=== PATIENT | female | born 1940 | race African-American/Black ===

== ENCOUNTER → 2016-07-31 | Outpatient (CLI) | payer MEDICARE ==
[2016-06-19 11:00] VITALS: BP 135/73
[~2016-07-31] MED LIST: ACET325T9 PO; ALPH300C PO; ALPR0.254 PO; ALPR0.5T6 PO; CALC-98 PO; CALC500T27 PO; CETI10CA PO; CETI10TA22 PO; DICL100G7 TP; FEXO180T81 PO; FLUT16SP2 NS; FURO40TA4 PO; HYDR12.58 PO; IBUP-1060 PO; LACT1CAP29 PO; LEVO500T38 PO; METR500T PO; MULT-245 PO; OMEP20CA9 PO; OMEP40CA5 PO; POLY17PO5 PO; POTA20TA4 PO; PROAIR HFA8.5 GM INH; SUCR1TAB29 PO
[2016-07-31 08:32] LABS: CREATININE 0.7 mg/dL (0.6-1.0); GFR 98.4
== END | disposition home or self-care (01) ==
LOC: CT 07:58
PROVIDERS: ATTEND Physician Assistant
DX: K31.84 Gastroparesis (principal); R10.9 Unspecified abdominal pain; R11.0 Nausea
CPT/HCPCS: 82565; 84443

== ENCOUNTER → 2016-08-01 | Outpatient (CLI) | payer MEDICARE ==
[2016-06-19 11:00] VITALS: BP 135/73
[~2016-08-01] MED LIST changes: +CONTRAST GIVEN MC PRN; +IOHEXOL 350 MG/ML 100ML VIAL. IV ONE
--- NOTE | 2016-08-01 10:53 | RAD ---
CTA of the abdomen and pelvis with contrast, 08/01/2016: History: Nausea and vomiting, abdominal pain, gastroparesis Multidetector CT imaging was performed following an IV bolus injection of iodinated contrast material. Multiplanar reconstructions were produced including 3-D volume rendered reconstructions. There are mild scattered atherosclerotic plaques in the abdominal aorta. There is mild narrowing of the origin of the celiac artery. Approximately 1.4 cm distal to its origin there is high-grade focal stenosis of the celiac artery with moderate poststenotic dilatation. The lumen narrows down to a width of approximately 1.5 mm. There is abrupt anterior angulation of the celiac artery just distal to this stenosis. Compression by the median arcuate ligament can produce this pattern. The superior mesenteric and bilateral renal arterial origins are widely patent. A widely patent inferior mesenteric artery is present. There is mild calcific plaquing in the iliac arteries and common femoral arteries without evidence of high-grade stenosis. Incidental CT findings include the presence of a small left renal cyst. There is colonic diverticulosis. There are moderate scattered degenerative change in the spine, particularly at the L3-4 level where there is a minimal spondylolisthesis. 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 Note: Stenosis calculations for CT, MRA and conventional angiography are based upon determination of the distal ICA diameter in accordance with the NASCET methodology. Stenosis calculations for Doppler studies are derived from validated velocity criteria which are known to correlate with NASCET methodology of determining stenosis. PQRS Compliance Statement: One or more of the following individualized dose reduction techniques were utilized for this examination: 1. Automated exposure control 2. Adjustment of the mA and/or kV according to patient size 3. Use of iterative reconstruction technique
== END | disposition home or self-care (01) ==
LOC: CT 07:20
PROVIDERS: ATTEND Physician Assistant
DX: R10.9 Unspecified abdominal pain (principal); R11.0 Nausea; K31.84 Gastroparesis
CPT/HCPCS: 74174; Q9967

== ENCOUNTER 2016-08-10 17:10 | Emergency (ER) | payer MEDICARE ==
[~2016-08-10] VITALS: Ht 154.9 cm; Wt 63.5 kg
[~2016-08-10 17:10] MED LIST changes: -CONTRAST GIVEN MC PRN; -IOHEXOL 350 MG/ML 100ML VIAL. IV ONE
--- NOTE | 2016-08-10 17:48 | ED.ADGEN ---
Past Medical History Past Medical History: Constipation, GERD Additional Past Medical Histor: chronic back pain, delayed gastric emptying Past Surgical History: Cholecystectomy, Hip Replacement, Hysterectomy Additional Past Surgical Histo: back surgery, hernia, R HIP Alcohol Use: None Drug Use: None Adult General Chief Complaint Chief Complaint: POST-OP PROBLEM HPI HPI Patient is a 75 year old female presents emergency department complaining of unilateral right leg pain and swelling. She is 6 days postop from a right total hip arthroplasty. Denies any fevers or chills. She is currently on Lovenox for DVT prophylaxis. She has been ambulating and doing well physical therapy. It was her home health nurse suggested that she come the emergency department today. Review of Systems Review of Systems Constitutional: Denies fever or chills. [] Eyes: Denies change in visual acuity. [] HENT: Denies nasal congestion or sore throat. [] Respiratory: Denies cough or shortness of breath. [] Cardiovascular: Denies chest pain or edema. [] GI: Denies abdominal pain, nausea, vomiting, bloody stools or diarrhea. [] : Denies dysuria. [] Musculoskeletal: Denies back pain or joint pain. [] Integument: Denies rash. [] Neurologic: Denies headache, focal weakness or sensory changes. [] Endocrine: Denies polyuria or polydipsia. [] Lymphatic: Denies swollen glands. [] Psychiatric: Denies depression or anxiety. [] Allergies Allergies Allergies Coded Allergies Type Severity Reaction Last Updated Verified lisinopril Allergy Severe SYMPTOMS OF A MINI STROKE 06/14/16 Yes acetaminophen Allergy Intermediate Nausea, LOW BLOOD PRESSURE, 06/14/16 Yes alprazolam Allergy Intermediate Unknown 06/14/16 Yes amlodipine Allergy Intermediate Nausea, SWELLING AND HEADACHES 06/14/16 Yes amoxicillin Allergy Intermediate Itching 06/14/16 Yes clavulanic acid Allergy Intermediate Itching 06/14/16 Yes clonidine Allergy Intermediate Rash 06/14/16 Yes cyclobenzaprine Allergy Intermediate Palpitations 06/14/16 Yes iodine Allergy Intermediate Itching 12/16/13 Yes iodine Allergy Intermediate Rash, ITCHING 06/14/16 Yes lactose Allergy Intermediate Swelling, BLOATING 06/14/16 Yes losartan Allergy Intermediate Swelling, MIGRAINE, SINUS INFECTION, 06/14/16 Yes olanzapine Allergy Intermediate Rash 06/14/16 Yes shellfish derived Allergy Intermediate Swelling 06/14/16 Yes tramadol Allergy Intermediate Swelling, ITCHING 06/14/16 Yes triamterene Allergy Intermediate Unknown 06/14/16 Yes valsartan Allergy Intermediate Swelling, MIGRAINE, SINUS INFECTION, 06/14/16 Yes simvastatin Allergy Mild MUSCLE PROBLEM 12/16/13 Yes hydrocodone Adverse Reaction Intermediate NAUSEA, LOW BLOOD PRESSURE 06/14/16 Yes methylprednisolone Adverse Reaction Intermediate THRUSH 06/14/16 Yes montelukast Adverse Reaction Intermediate COULD NOT SLEEP 06/14/16 Yes potassium Adverse Reaction Intermediate Nausea 06/14/16 Yes promethazine Adverse Reaction Intermediate Nausea 06/14/16 Yes sertraline Adverse Reaction Intermediate TREMORS, HYPOTENSION 06/14/16 Yes Physical Exam Physical Exam Constitutional: Well developed, well nourished, no acute distress, non-toxic appearance. [] HENT: Normocephalic, atraumatic, bilateral external ears normal, oropharynx moist, no oral exudates, nose normal. [] Eyes: PERRLA, EOMI, conjunctiva normal, no discharge. [] Neck: Normal range of motion, no tenderness, supple, no stridor. [] Cardiovascular:Heart rate regular rhythm, no murmur [] Lungs & Thorax: Bilateral breath sounds clear to auscultation [] Abdomen: Bowel sounds normal, soft, no tenderness, no masses, no pulsatile masses. [] Skin: Warm, dry, no erythema, no rash. [] Extremities: Surgical site looks well with no signs of infection, right lower extremity is noticeably edematous comparison to the left, no cyanosis, no clubbing, ROM intact. [] Neurologic: Alert and oriented X 3, normal motor function, normal sensory function, no focal deficits noted. [] Psychologic: Affect normal, judgement normal, mood normal. [] Current Patient Data Vital Signs Vital Signs Date Time Temp Pulse Resp B/P Pulse Ox O2 Delivery O2 Flow Rate FiO2 08/10/16 19:21 89 20 202/76 Room Air 08/10/16 17:51 99 08/10/16 17:25 98.9 98.9 EKG EKG [] Radiology/Procedures Radiology/Procedures PROCEDURE Ultrasound venous system right leg 3 05/2017. HISTORY Pain and swelling. One week post hip replacement surgery. TECHNIQUE Color Doppler and spectral waveform analysis was performed along with real-time grayscale technique. COMPARISON FINDINGS The deep venous system of the right lower extremity shows normal compressibility and normal Doppler flow and augmentation of flow extending from the common femoral segment to the popliteal segment. The visualized calf veins also appear normal. Incidental note is made of some subcutaneous edema in the leg. IMPRESSION No evidence of DVT. Electronically signed by: Victor Manuel Nicole (Aug 10, 2016 19:28:54) DICTATED and SIGNED BY: VICTOR MANUEL NICOLE Jr, MD DATE: 08/10/161927 CC: SHAHAB FORD MD; SHAWN ALMONTE MD ~[] Course & Med Decision Making Course & Med Decision Making Pertinent Labs and Imaging studies reviewed. (See chart for details) Reassuring workup. Will follow up with her ortho tomorrow. Return precautions given. post-operative edema [] Dragon Disclaimer Dragon Disclaimer This electronic medical record was generated, in whole or in part, using a voice recognition dictation system. SHAHAB FORD MD Aug 10, 2016 17:47
[2016-08-10 19:21] VITALS: BP 202/76
--- NOTE | 2016-08-10 19:30 | RAD ---
PROCEDURE Ultrasound venous system right leg 3 05/2017. HISTORY Pain and swelling. One week post hip replacement surgery. TECHNIQUE Color Doppler and spectral waveform analysis was performed along with real-time grayscale technique. COMPARISON FINDINGS The deep venous system of the right lower extremity shows normal compressibility and normal Doppler flow and augmentation of flow extending from the common femoral segment to the popliteal segment. The visualized calf veins also appear normal. Incidental note is made of some subcutaneous edema in the leg. IMPRESSION No evidence of DVT. Electronically signed by: Victor Manuel Vasquez (Aug 10, 2016 19:28:54)
== END 2016-08-10 19:53 | disposition home or self-care (01) ==
LOC: ER 17:10
DX: T81.89XA Other complications of procedures, not elsewhere classified, initial encounter (principal); R60.9 Edema, unspecified; G89.29 Other chronic pain; Z88.0 Allergy status to penicillin; Z88.1 Allergy status to other antibiotic agents; Z88.5 Allergy status to narcotic agent; Z88.6 Allergy status to analgesic agent; Z88.8 Allergy status to other drugs, medicaments and biological substances; Z91.041 Radiographic dye allergy status; Z91.011 Allergy to milk products; Z91.013 Allergy to seafood
CPT/HCPCS: 93971; 99284-25

== ENCOUNTER 2016-09-30 15:25 | Emergency (ER) | payer MEDICARE ==
[~2016-09-30] VITALS: Ht 154.9 cm; Wt 59.0 kg
[~2016-09-30 15:25] MED LIST changes: +POLY17PO29 PO; -POLY17PO5 PO
[2016-09-30] MEDS ORDERED: IV NORMAL SALINE 500ML BAG 500 ML IV ONE (15:45)
[2016-09-30] MEDS ORDERED: ONDANSETRON PF 4 MG/2 ML VIAL. IV ONE (15:45)
--- NOTE | 2016-09-30 15:49 | EKG ---
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
--- NOTE | 2016-09-30 15:55 | PHYS DOC ---
Past Medical History Past Medical History: Constipation, GERD Additional Past Medical Histor: chronic back pain, delayed gastric emptying, celiac artery stenosis Past Surgical History: Cholecystectomy, Hip Replacement, Hysterectomy Additional Past Surgical Histo: back surgery, hernia, R HIP Alcohol Use: None Drug Use: None Adult General Chief Complaint Chief Complaint: RAPID HEART RATE HPI HPI Patient is a 75 year old female with celiac artery stenosis who presents postop day 1 from attempted arterial stenting by vascular surgeon at [facility] for tachycardia and palpitations at home. She had procedure yesterday that was unsuccessful. During the case she had high and low blood pressures, so she was placed in the ICU overnight and then moved to normal room today. She was discharged this morning. She was given dose of hydralazine prior to departure for high blood pressure. She has slight nausea which she says is chronic. She otherwise denies emesis, fever or chills, abdominal pain, bloody or dark stools, chest pain, dyspnea or chills. She has no prior history of abnormal heart rate or arrhythmia. Review of Systems Review of Systems Constitutional: Denies fever or chills [] Eyes: Denies change in visual acuity, redness, or eye pain [] HENT: Denies nasal congestion or sore throat [] Respiratory: Denies cough or shortness of breath [] Cardiovascular: No additional information not addressed in HPI [] GI: Denies abdominal pain, vomiting, bloody stools or diarrhea [] : Denies dysuria or hematuria [] Musculoskeletal: Denies back pain or joint pain [] Integument: Denies rash or skin lesions [] Neurologic: Denies headache, focal weakness or sensory changes [] Endocrine: Denies polyuria or polydipsia [] Current Medications Current Medications Current Medications Medications (Trade) Dose Ordered Sig/[facility] Start Time Stop Time Status Last Admin Dose Admin Acetaminophen (Tylenol) 500 mg 1X ONCE 09/30/16 17:45 09/30/16 17:46 DC 09/30/16 18:15 500 MG Diphenhydramine HCl (Benadryl) 25 mg 1X ONCE 09/30/16 19:00 09/30/16 19:01 DC 09/30/16 18:51 25 MG Famotidine (Pepcid) 20 mg 1X ONCE 09/30/16 19:00 09/30/16 19:01 DC 09/30/16 18:51 20 MG Iohexol (Omnipaque 350 Mg/ml) 90 ml 1X ONCE 09/30/16 19:00 09/30/16 19:01 DC 09/30/16 19:17 90 ML Methylprednisolone Sodium Succinate (Solu-Medrol 125mg Vial) 125 mg 1X ONCE 09/30/16 19:00 09/30/16 19:01 DC 09/30/16 18:51 125 MG Ondansetron HCl 4 mg 4 mg 1X ONCE 09/30/16 15:45 09/30/16 15:48 DC 09/30/16 16:34 4 MG Sodium Chloride (Iv Sodium Chloride 0.9% 500ml Bag) 500 ml @ 500 mls/hr 1X ONCE 09/30/16 15:45 09/30/16 16:44 DC 09/30/16 16:34 500 MLS/HR Allergies Allergies Allergies Coded Allergies Type Severity Reaction Last Updated Verified lisinopril Allergy Severe SYMPTOMS OF A MINI STROKE 06/14/16 Yes alprazolam Allergy Intermediate Unknown 06/14/16 Yes amlodipine Allergy Intermediate Nausea, SWELLING AND HEADACHES 06/14/16 Yes amoxicillin Allergy Intermediate Itching 06/14/16 Yes clavulanic acid Allergy Intermediate Itching 06/14/16 Yes clonidine Allergy Intermediate Rash 06/14/16 Yes cyclobenzaprine Allergy Intermediate Palpitations 06/14/16 Yes iodine Allergy Intermediate Itching 12/16/13 Yes iodine Allergy Intermediate Rash, ITCHING 06/14/16 Yes lactose Allergy Intermediate Swelling, BLOATING 06/14/16 Yes losartan Allergy Intermediate Swelling, MIGRAINE, SINUS INFECTION, 06/14/16 Yes olanzapine Allergy Intermediate Rash 06/14/16 Yes shellfish derived Allergy Intermediate Swelling 06/14/16 Yes tramadol Allergy Intermediate Swelling, ITCHING 06/14/16 Yes triamterene Allergy Intermediate Unknown 06/14/16 Yes valsartan Allergy Intermediate Swelling, MIGRAINE, SINUS INFECTION, 06/14/16 Yes simvastatin Allergy Mild MUSCLE PROBLEM 12/16/13 Yes hydrocodone Adverse Reaction Intermediate NAUSEA, LOW BLOOD PRESSURE 06/14/16 Yes montelukast Adverse Reaction Intermediate COULD NOT SLEEP 06/14/16 Yes potassium Adverse Reaction Intermediate Nausea 06/14/16 Yes promethazine Adverse Reaction Intermediate Nausea 06/14/16 Yes sertraline Adverse Reaction Intermediate TREMORS, HYPOTENSION 06/14/16 Yes Physical Exam Physical Exam Constitutional: Well developed, well nourished, no acute distress, non-toxic appearance. [] HENT: Normocephalic, atraumatic, bilateral external ears normal, oropharynx moist, nose normal. [] Eyes: PERRLA, EOMI. [] Neck: Normal range of motion, supple. [] Cardiovascular: Regular tachycardia [] Lungs & Thorax: Bilateral breath sounds clear to auscultation [] Abdomen: Bowel sounds normal, soft, no tenderness. [] Skin: Warm, dry, no erythema, no rash. [] Back: Normal range of motion. [] Extremities: No tenderness, ROM intact, no edema. [] Neurologic: Alert and oriented X 3, normal motor function, normal sensory function, no focal deficits noted. [] Psychologic: Affect normal, judgement normal, mood normal. [] Current Patient Data Vital Signs Vital Signs Date Time Temp Pulse Resp B/P Pulse Ox O2 Delivery O2 Flow Rate FiO2 09/30/16 18:00 106 18 159/74 100 Room Air 09/30/16 15:30 98.2 98.2 Lab Values Laboratory Tests Test 09/30/16 16:14 White Blood Count 10.0x10^3/uL (4.0-11.0) Red Blood Count 3.79x10^6/uL (3.50-5.40) Hemoglobin 12.8g/dL (12.0-15.5) Hematocrit 37.0% (36.0-47.0) Mean Corpuscular Volume 98fL (79-100) Mean Corpuscular Hemoglobin 34pg (25-35) Mean Corpuscular Hemoglobin Concent 35g/dL (31-37) Red Cell Distribution Width 13.2% (11.5-14.5) Platelet Count 265x10^3/uL (140-400) Neutrophils (%) (Auto) 77% (31-73) H Lymphocytes (%) (Auto) 14% (24-48) L Monocytes (%) (Auto) 8% (0-9) Eosinophils (%) (Auto) 1% (0-3) Basophils (%) (Auto) 1% (0-3) Neutrophils # (Auto) 7.8x10^3uL (1.8-7.7) H Lymphocytes # (Auto) 1.4x10^3/uL (1.0-4.8) Monocytes # (Auto) 0.8x10^3/uL (0.0-1.1) Eosinophils # (Auto) 0.1x10^3/uL (0.0-0.7) Basophils # (Auto) 0.1x10^3/uL (0.0-0.2) Sodium Level 134mmol/L (136-145) L Potassium Level 3.6mmol/L (3.5-5.1) Chloride Level 99mmol/L (98-107) Carbon Dioxide Level 28mmol/L (21-32) Anion Gap 7 (6-14) Blood Urea Nitrogen 11mg/dL (7-20) Creatinine 0.6mg/dL (0.6-1.0) Estimated GFR (Cockcroft-Gault) 117.6 Glucose Level 99mg/dL (70-99) Lactic Acid Level 1.5mmol/L (0.4-2.0) Calcium Level 9.6mg/dL (8.5-10.1) Total Bilirubin 0.3mg/dL (0.2-1.0) Direct Bilirubin 0.1mg/dL (0.0-0.2) Aspartate Amino Transferase (AST) 17U/L (15-37) Alanine Aminotransferase (ALT) 25U/L (14-59) Alkaline Phosphatase 78U/L (46-116) Total Protein 7.4g/dL (6.4-8.2) Albumin 3.9g/dL (3.4-5.0) Lipase 74U/L (73-393) Laboratory Tests 09/30/16 16:14 Laboratory Tests 09/30/16 16:14 EKG EKG EKG as interpreted by me as sinus tachycardia, rate 122, no ST-T changes, normal intervals, no ectopy Radiology/Procedures Radiology/Procedures CT angiogram abdomen and pelvis with IV contrast IMPRESSION 1. 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 2. There is colonic diverticulosis. 3. Small hypodense foci of the kidneys are otherwise difficult to accurately characterize, statistically most likely cysts. Electronically signed by: Billy Fung MD (September 30, 2016 19:51:42) Course & Med Decision Making Course & Med Decision Making Pertinent Labs and Imaging studies reviewed. (See chart for details) Workup is unremarkable. Her heart rate has improved since being observed here. I suspect she had reflex tachycardia associated with hydralazine. She would like to go home at this time. Return precautions given. She understands and agrees with plan. Dragon Disclaimer Dragon Disclaimer This electronic medical record was generated, in whole or in part, using a voice recognition dictation system. Departure Departure Impression: Primary Impression: Tachycardia Disposition: 01 HOME, SELF-CARE Condition: STABLE Referrals: SHAWN ALMONTE MD (PCP) Patient Instructions: Palpitations, [id number] Additional Instructions: Follow-up with your primary care doctor. Return for any concerns. Raquel RAMIREZ MD September 30, 2016 15:55
[2016-09-30 16:23] LABS: BASO # 0.1 x10^3/uL (0.0-0.2); BASO % 1 % (0-3); EOS % 1 % (0-3); HEMOGLOBIN 12.8 g/dL (12.0-15.5); LYMPH # 1.4 x10^3/uL (1.0-4.8); LYMPH % 14 % (24-48); MEAN CORPUSCULAR HEMOGLOBIN 34 pg (25-35); MEAN CORPUSCULAR HGB CONC 35 g/dL (31-37); MEAN CORPUSCULAR VOLUME 98 fL (79-100); MONO % 8 % (0-9); NEUT % 77 % (31-73); PLATELET COUNT 265 x10^3/uL (140-400); RED BLOOD COUNT 3.79 x10^6/uL (3.50-5.40); RED CELL DISTRIBUTION WIDTH 13.2 % (11.5-14.5)
[2016-09-30 16:43] LABS: CALCIUM 9.6 mg/dL (8.5-10.1); CREATININE 0.6 mg/dL (0.6-1.0); GFR 117.6; POTASSIUM 3.6 mmol/L (3.5-5.1)
[2016-09-30 16:49] LABS: ALBUMIN 3.9 g/dL (3.4-5.0); DIRECT BILIRUBIN 0.1 mg/dL (0.0-0.2); TOTAL BILIRUBIN 0.3 mg/dL (0.2-1.0); TOTAL PROTEIN 7.4 g/dL (6.4-8.2)
[2016-09-30] MEDS ORDERED: ACETAMINOPHEN 500 MG TABLET PO ONE (17:45)
[2016-09-30] MEDS ORDERED: IOHEXOL 350 MG/ML 100 ML VIAL. IV ONE (19:00)
[2016-09-30] MEDS ORDERED: FAMOTIDINE 20 MG/2 ML VIAL IVP ONE (19:00)
[2016-09-30] MEDS ORDERED: methylPREDNISolone SOD SUCC PF 125 MG/2 ML VIAL. IV ONE (19:00)
[2016-09-30] MEDS ORDERED: diphenhydrAMINE 50 MG/ML VIAL IVP ONE (19:00)
--- NOTE | 2016-09-30 19:06 | ACF ---
Admission Forms Criteria GENERAL ADMISSION CRITERIA (Place 'X' for any and all applicable criteria): Admission is indicated for ANY ONE of the following: [ ]I. Hemodynamic instability as indicated by ANY ONE of the following(1)(2) (3)(4)(5): [ ]a) Vital sign abnormality not readily corrected by appropriate treatment within 12 to 24 hours indicated by ANY ONE of the following: [ ]i) Hypotension [ ]ii) Symptomatic Tachycardia unresponsive to treatment (eg , analgesia, fluids, sedation as indicated) [ ]iii) Orthostatic vital sign changes unresponsive to treatment (eg, fluids) [ ]b) Vital sign abnormality that is severe indicated by ANY ONE of the following: [ ]i) Inadequate perfusion indicated by ANY ONE of the following: [ ]1) Lactic acidosis (greater than 2 mmol/L) [ ]2) New abnormal capillary refill (greater than 3 seconds) [ ]3) Other metabolic acidosis (arterial pH less than 7.35) not otherwise explained [ ]4) Reduced urine output [ ]5) Altered mental status [ ]6) Myocardial Ischemia [ ]v) Mean arterial pressure[A] less than 60 mm Hg [ ]vi) Mean arterial pressure[A] less than 70 mm Hg after 30 minutes of appropriate treatment (eg, fluid resuscitation) [ ]vii) IV inotropic or vasopressor medication required to maintain adequate blood pressure or perfusion [ ]viii) Sustained heart rate greater than 120 beats per minute in adult or child 6 years or older[B]] [ ]II. Hypertension requiring inpatient treatment as indicated by ANY ONE of the following(6)(7)(8): [ ]a) SBP greater than 220 mm Hg or DBP greater than 120 mm Hg despite treatment [ ]b) SBP greater than 140 mm Hg or DBP greater than 100 mm Hg with evidence of acute end organ damage as indicated by ANY ONE of the following: [ ]i) Encephalopathy [ ]ii) Acute renal failure as indicated by new onset of ANY ONE of the following(9)(10)(11)(12)(13): [ ]1) A 3-fold rise in serum creatinine from baseline [ ]2) Serum creatinine greater than 4 mg/dL ( 354 micromoles/L) with acute rise greater than 0.5 mg/dL (44.2 micromoles/L) [ ]3) Reduction of more than 75% in estimated glomerular filtration rate from baseline [ ]4) Estimated glomerular filtration rate less than 35 mL/min/1.73m2 (0.59 mL/sec/1.73m2) in child up to 18 years of age [ ]5) Cessation of urine output indicated by ALL of the following: [ ]A. Adequate volume status [ ]B. Inadequate urine output as indicated by ANY ONE of the following: [ ]a. Urine output less than 0.3 mL/kg/hr for 24 hours [ ]b. Anuria (urine output less than 0.1 mL/kg/hr) for 12 hours [ ]iii) Aortic dissection [ ]iv) Myocardial ischemia [ ]v) Left ventricular heart failure [ ]vi) Retinal hemorrhage [ ]vii) Other significant finding [ ]c) Hypertension in child requiring inpatient treatment as indicated by ALL of the following(14)(15)(16): [ ]i) Outpatient treatment not effective, not available, or not appropriate [ ]ii) SBP or DBP greater than 95th percentile for age [ ]iii) Evidence of acute end organ damage as indicated by ANY ONE of the following: [ ]1) Altered mental status [ ]2) Acute renal failure as indicated by new onset of ANY ONE of the following(9)(10)(11)(12)(13): [ ]A. A 3-fold rise in serum creatinine from baseline [ ]B. Serum creatinine greater than 4 mg/dL (354 micromoles/L) with acute rise greater than 0.5 mg/dL (44.2 micromoles/L) [ ]C. Reduction of more than 75% in estimated glomerular filtration rate from baseline [ ]D. Estimated glomerular filtration rate less than 35 mL/min/1.73m2 (0.59 mL/sec/1.73m2)in child up to 18 years of age [ ]E. Cessation of urine output indicated by ALL of the following: [ ]a. Adequate volume status [ ]b. Inadequate urine output as indicated by ANY ONE of the following: [ ]1) Urine output less than 0.3 mL/kg/hr for 24 hours [ ]2) Anuria (urine output less than 0.1 mL/kg/hr) for 12 hours [ ]3) Severe headache [ ]4) Visual disturbance [ ]5) Retinal hemorrhage [ ]6) Other significant finding [ ]III. Acute cardiac or peripheral ischemia as indicated by ANY ONE of the following: [ ]a) Acute coronary syndrome(17)(18) [ ]b) Acute peripheral ischemia (eg, pulseless, cool, mottled, or cyanotic extremity)(19) [ ]IV. Cardiac arrhythmias or findings of immediate concern indicated by ANY ONE of the following(20)(21): [ ]a) Heart rhythms that are inherently dangerous or unstable indicated by ANY ONE of the following(22)(23)(24): [ ]i) Resuscitated ventricular fibrillation or cardiac arrest [ ]ii) Ventricular escape rhythm [ ]iii) Sustained ventricular tachycardia (30 seconds or more of ventricular rhythm at greater than 100 beats per minute) [ ]iv) Nonsustained ventricular tachycardia and ANY ONE of the following: [ ]1) Suspected cardiac ischemia as cause or consequence of ventricular tachycardia [ ]2) In setting of acute myocarditis [ ]b) Unstable cardiac conduction defects indicated by ANY ONE of the following(24)(25)(26): [ ]i) Type II second-degree atrioventricular block [ ]ii) Third-degree atrioventricular block [ ]iii) New-onset left bundle branch block with suspected myocardial ischemia [ ]c) Any heart rhythm and ANY ONE of the following(22)(23)(27)(28)( 29): [ ] i) Continuous long-term ECG monitoring needed (eg, initiation of drug requiring monitoring for more than 24 hours) [ ] ii) Patient has automatic implanted cardioverter defibrillator that is repeatedly firing, malfunctioning, or in need of immediate adjustment of settings beyond the scope of ambulatory or observation care. [ ]d) Heart rhythms of concern due to ANY ONE of the following: [ ]i) Hypotension [ ]ii) Respiratory distress [ ]iii) Association with other significant symptoms (eg, bradycardia with syncope or ongoing dizziness, supraventricular tachycardia with chest pain) (27)(28) (30) [ ] V. Severe heart failure as indicated by ANY ONE of the following ( 31)(32): [ ]a) Respiratory distress [ ]b) Hypotension [ ]c) Anasarca (refractory to outpatient therapy) [ ]d) Cardiac arrhythmias of immediate concern [ ]e) Myocardial ischemia [ ]. Respiratory abnormalities, including ANY ONE of the following(33)(34) (35)(36): [ ]a) Respiratory rate greater than 30 breaths per minute unresponsive to treatment [A] [ ]b) New saturation of arterial oxygen less than 90% [ ]c) New partial pressure of carbon dioxide greater than 44 mm Hg ( 5.9 kPa) [ ]d) Supplemental oxygen or respiratory treatments needed that are new or not performable at other levels of care [ ]e) New-onset cyanosis [ ]f) Inability to protect airway [ ]g) Chronic lung disease with severe deterioration (not responsive to emergency and observation care treatment as appropriate) as indicated by ANY ONE of the following(34)(36 ): [ ]i) SaO2 5% below baseline in patient with chronic hypoxemia [ ]ii) New requirement for supplemental oxygen to keep SaO2 at baseline or acceptable level [ ]iii) Required supplemental oxygen performable only in acute inpatient setting [ ]iv) Severe airflow or ventilation abnormalities [ ]v) Previously mobile patient unable to walk between rooms [ ]vi Inability to eat or sleep due to dyspnea [ ]vii) Rapid rate of exacerbation onset [ ]viii) Altered mental status ]VII. Severe airflow or ventilation abnormalities (not responsive to emergency and observation care treatment as appropriate) as indicated by ANY ONE of the following(33)(34)(35)(37): [ ]a) PCO2 greater than 42 mm Hg (5.6 kPa) and pH less than 7.35 (new ) [ ]b) Documented PCO2 increased more than 5 mm Hg (0.7 kPa) from disease baseline [ ]c) Airflow measurements [B] less than 60% of previous best or predicted (eg, peak expiratory flow rate less than 300 L/minute) despite intensive emergent treatment [C] [ ]d) Required respiratory treatments that are performable only in acute inpatient setting [ ]VIII. Impending or actual respiratory arrest ( Also use Respiratory Failure GRG for severe respiratory disease and long-term mechanical ventilation patients) [ ]IX. Neurologic abnormalities, including ANY ONE of the following: [ ]a) New findings that suggest ANY ONE of the following: [ ]i) LOGISTICS SUPPORT infection(38) [ ]ii) Cerebral bleeding, ischemia, or vasospasm(39)(40) [ ]iii) Increased intracranial pressure, hydrocephalus, or cerebral edema(41)(42)(43) [ ]iv) Spinal cord injury(44) [ ]b) Uncontrolled seizures(45) [ ]c) New-onset coma (eg, Veronica coma scale score less than 9) or unexplained abnormal mental status (eg, Veronica coma scale score less than 14) [D](41)(46)(47) [ ]X. New-onset severe neurologic findings requiring inpatient care; examples include(42)(48)(49): [ ]a) Papilledema [ ]b) Cerebral edema [ ]c) Mass effect on CT scan [ ]XI. Suspected acute intra-abdominal process with peritoneal signs, abdominal mass, or similar findings (50)(51)(52) [ ]XII. Severe physiologic disorder remaining after emergency or observation level care (as appropriate) as indicated by ANY ONE of the following (53): [ ]a) Significant dehydration [ ]b) Diabetic ketoacidosis [ ]c) Hyperglycemic hyperosmolar state (eg, osmolality greater than 320 mOsm/kg (mmol/kg) [ ]d) Hypoglycemia [ ]e) Other (new) acid-base disorder with pH less than 7.35 or greater than 7.5(54) [ ]f) Thyroid storm (55) [ ]g) Myxedema coma (55) [ ]XIII. Abdominal abnormalities with ANY ONE of the following(56)(57): [ ]a) Absent bowel sounds with complete ileus [ ]b) Signs of intestinal obstruction or peritonitis [E] [ ]c) Nausea and vomiting that cannot be controlled with outpatient or observation care [ ]XIV. Acute renal failure as indicated by new onset of ANY ONE of the following(9)(10)(11)(12)(13): [ ]a) A 3-fold rise in serum creatinine from baseline [ ]b) Serum creatinine greater than 4 mg/dL (354 micromoles/L) with acute rise greater than 0.5 mg/dL (44.2 micromoles/L) [ ]c) Reduction of more than 75% in estimated glomerular filtration rate from baseline [ ]d) Estimated glomerular filtration rate less than 35 mL/min/ 1.73m2 (0.59 mL/sec/1.73m2) in child up to 18 years of age [ ]e) Cessation of urine output indicated by ALL of the following: [ ]i) Adequate volume status [ ]ii) Inadequate urine output as indicated by ANY ONE of the following: [ ]1) Urine output less than 0.3 mL/kg/hr for 24 hours [ ]2) Anuria (urine output less than 0.1 mL/kg/hr) for 12 hours [ ]XV. Significant uremic complications as indicated by ANY ONE of the following(58)(59)(60): [ ]a) Outpatient therapy is ineffective or not feasible for ANY ONE of the following: [ ]i) Severe heart failure [ ]ii) Severehypertension [ ]iii) Pleural effusion [ ]iv) Pericarditis or pericardial effusion [ ]b) Cardiac arrhythmias of immediate concern [ ]c) Intractable nausea or vomiting [ ]d) Recurrent seizures [ ]e) Encephalopathy [ ]f) Bleeding abnormalities (eg, platelet dysfunction) with active (eg, gastrointestinal) bleeding [ ]g) Dialysis indicated before long-term access or ambulatory arrangements can be made [ ]h) Significant metabolic or electrolyte abnormalities (eg, severe acidosis or hyperkalemia) [ ]XVI. High fever or other high-risk infection situation as indicated by ANY ONE of the following(61)(62)(63)(64): [ ]a) Outpatient and observation care antimicrobial treatment unavailable, not effective, or not appropriate [ ]b) Documented bacteremia [ ]c) Temperature greater than 40.5 degrees C (104.9 degrees F) ( oral) [ ]d) Temperature greater than 39.5 degrees C (103.1 degrees F) ( oral) or less than 36 degrees C (96.8 degrees F) (rectal) that does not respond to e treatment and observation care [ ] XVII. Temperature less than 95 degrees F (35 degrees C)(rectal)(65) [ ] XVIII. Severe nutritional abnormalities as indicated by ALL of the following (66)(67): [ ]a) Inability to tolerate or establish sufficient oral or other enteral nutrition in outpatient setting [ ]b) Parenteral nutrition regimen need that must be implemented on inpatient basis [ ] XIX. Severe electrolyte abnormalities indicated by ALL of the following(68) (69)(70): [ ]a) Electrolytes and associated findings are not as expected for patient baseline or acceptable treatment effects. [ ]b) Severe abnormalities indicated by ANY ONE of the following: [ ]i) Sodium less than 130 mEq/L (mmol/L) (new) [ ]ii)Sodium less than 135 mEq/L (mmol/L) with ANY ONE of the following: [ ]1) Uncorrectable (to near normal or chronic baseline) after trial of outpatient and emergency treatment [ ]2) Altered mental status [ ]3) Seizures [ ]4) Severe medical etiology requiring inpatient management (eg, heart failure, hypovolemia) [ ]iii) Sodium greater than 155 mEq/L (mmol/L) [ ]iv) Sodium greater than 150 mEq/L (mmol/L) with ANY ONE of the following: [ ]1) Uncorrectable (to near normal or chronic baseline) with outpatient and emergency treatment [ ]2) Altered mental status [ ]3) Seizures [ ]4) Severe medical etiology (eg, hypovolemia, diabetes insipidus) [ ]v) Potassium less than 2.5 mEq/L (mmol/L) despite outpatient and emergency treatment [ ]vi) Potassium less than 3 mEq/L (mmol/L) with ANY ONE of the following: [ ]1) Weakness [ ]2) Cardiac abnormality (eg, arrhythmia, conduction disturbance) [ ]3) Cardiac ischemia [ ]4) Ileus [ ]5) Ongoing medical cause requiring inpatient management (eg, acute renal wasting or SIADH) [ ]6) Other severe symptoms [ ]vii) Potassium greater than 6.5 mEq/L (mmol/L) [ ]viii) Potassium greater than 5 mEq/L (mmol/L) with ANY ONE of the following: [ ]1) Uncorrectable (to near normal or chronic baseline) with outpatient and emergency treatment [ ]2) Severe ECG findings [F] [ ]3) Acute worsening of renal failure (creatinine greater than 2.5 mg/dL (221 micromoles/L) or significant elevation for age and size) [ ]4) Severe weakness [ ]5) Severe medical etiology (eg, hemolysis, infection, drug overdose) [ ]ix) Calcium less than 7 mg/dL (1.75 mmol/L) despite outpatient and emergency treatment (72) [ ]x) Calcium less than 8 mg/dL (2 mmol/L) with significant symptoms or findings; examples include(72): [ ]1) Altered mental status [ ]2) Muscle spasms [ ]3) Seizures [ ]4) Breathing difficulty [ ]5) Cardiac abnormality (eg, arrhythmia or conduction disturbance) [ ]xi) Calcium greater than 14 mg/dL (3.5 mmol/L)(72) [ ]xii) Calcium greater than 12 mg/dL (3 mmol/L) with ANY ONE of the following(72): [ ]1) Uncorrectable (to near normal or chronic baseline) with outpatient and emergency treatment [ ]2) Significant dehydration or hypovolemia as indicated by ALL of the following(70)(73)(74): [ ]A. Not resolved with initial treatments [ ]B. Clinically significant dehydration as indicated by ANY ONE of the following: [ ]a. Vomiting refractory to outpatient treatment (ie, precluding oral rehydration) [ ]b. Inability to drink [ ]c. Hypernatremia or other electrolyte abnormality unable to be corrected with outpatient and emergency treatment [ ]d. Failure to remain hydrated with outpatient therapy [ ]e. Reduced urine output [ ]f. Hypotension [ ]g. Serious cause for dehydration requiring acute hospitalization (eg, bowel obstruction, increased intracranial pressure, infectious cause) [ ]h. Child with ANY ONE of the following(75): [ ]1) Severe abdominal tenderness [ ]2) Adequate care not available at home [ ]3) Severe dehydration ( greater than 9% loss of body weight) [ ]4) Significant symptoms or findings; examples include: [ ]A. Altered mental status [ ]B. Cardiac abnormality (eg, arrhythmia, conduction disturbance) [ ]C. Malignant etiology requiring inpatient treatment [ ]xiii) Phosphorus less than 1 mg/dL (0.32 mmol/L) [ ]xiv) Phosphorus less than 1.5 mg/dL (0.48 mmol/L) with ANY ONE of the following: [ ]1) Patient unresponsive to outpatient and emergency treatment [ ]2) Significant symptoms or findings; examples include: [ ]A. Weakness [ ]B. Altered mental status [ ]C. Breathing difficulty [ ]D. Seizures [ ]E. Rhabdomyolysis [ ]xv) Phosphorus greater than 10 mg/dL (3.2 mmol/L) [ ]xvi) Phosphorus greater than 4.5 mg/dL (1.45 mmol/L) (new) with ANY ONE of the following: [ ]1) Severe medical etiology (eg, crush injury, acute renal failure) [ ]2) Associated hypocalcemia with significant findings; examples include: [ ]A. Neurologic symptoms [ ]B. Altered mental status [ ]C. Muscle spasms [ ]D. Seizures [ ]E. Breathing difficulty [ ]F. Cardiac abnormality (eg, arrhythmia, conduction disturbance) [ ]xvii) Magnesium less than 1 mg/dL (0.41 mmol/L) [ ]xviii) Magnesium less than 1.5 mg/dL (0.62 mmol/L) with ANY ONE of the following: [ ]1) Patient unresponsive to outpatient and emergency treatment [ ]2) Associated hypocalcemia with significant findings; examples include: [ ]A. Altered mental status [ ]B. Muscle spasms [ ]C. Seizures [ ]D. Breathing difficulty [ ]E. Cardiac abnormality (eg, arrhythmia , conduction disturbance) [ ]3) Associated hypokalemia (potassium less than 3 mEq/L (mmol/L)) with risk of arrhythmia [ ]xix) Magnesium greater than 4 mEq/L (2 mmol/L) [ ]xx) Magnesium greater than 2.5 mEq/L (1.25 mmol/L) with significant symptoms or findings; examples include: [ ]1) Weakness [ ]2) Altered mental status [ ]3) Cardiac abnormality (eg, arrhythmia, conduction disturbance) [ ]4) Breathing difficulty [ ]5) Severe medical etiology (eg, renal failure, hypovolemia) [ ]xxi) Uric acid greater than 20 mg/dL (1190 micromoles/L)(76) [ ]xxii) Uric acid greater than 8 mg/dL (476 micromoles/L) with significant symptoms or findings of tumor lysis syndrome; examples include(76): [ ]1) Creatinine greater than 1.5 times upper limit of normal [ ]2) Cardiac abnormality (eg, arrhythmia, conduction disturbance) [ ]3) Seizure [ ]XX. Acute blood loss causing significant abnormality as indicated by ANY ONE of the following(77)(78): [ ]a) Hemoglobin less than 10 g/dL (100 g/L) (not baseline) [ ]b) Hematocrit less than 30% (0.30) (not baseline) [ ]c) Repeat hematocrit decreased more than 2% (0.02) [ ]d) Uncontrolled bleeding [ ]XXI. Severe anemia indicated by ANY ONE of the following(78)(79): [ ]a) Altered mental status [ ]b) Chest pain [ ]c) Exertional dyspnea [ ]d) Syncope [ ]e) Other findings suggesting inadequate perfusion [ ]f) Treatment with transfusion or volume replacement is ineffective at resolving ANY ONE of the following [G]: [ ]i) Tachycardia for age [ ]ii) Orthostatic vital sign changes as indicated by ANY ONE of the following(80): [ ]1) Fall in SBP of 20 mm Hg or more 1 to 3 minutes after patient sits or stands from recumbent position [ ]2) Fall in DBP of 10 mm Hg or more 1 to 3 minutes after patient sits or stands from recumbent position [ ]XXII. High-risk low platelet count as indicated by ANY ONE of the following( 81)(82): [ ]a) Severe or life-threatening bleeding (eg, intracranial, major gastrointestinal, or extensive mucosal bleeding), with any reduced platelet count [ ]b) Platelet count less than 20,000/mm3 (20 x109/L) with any active bleeding [ ]c) Platelet count less than 10,000/mm3 (10 x109/L) with minor purpura or petechiae [ ]d) Platelet count less than 5000/mm3 (5 x109/L) [ ]e) Low platelet count with hemolytic anemia [ ]XXIII. Disseminated intravascular coagulation(77)(83) [ ]XXIV. Severe adverse drug or systemic toxin reaction requiring inpatient treatment; examples include(84)(85): [ ]a) Serotonin syndrome(86) [ ]b) Neuroleptic malignant syndrome(86) [ ]c) Cholinergic syndrome with severe symptoms (eg, bronchorrhea, weakness, mental status changes, seizures) [ ]d) Sympathetic syndrome with severe symptoms (eg, seizures, mental status changes, cardiac dysrhythmias) [ ]e) Anticholinergic syndrome [ ]XXV. Severe pain requiring acute inpatient management as indicated by ALL of the following (87)(88)(89): [ ]a) Continuous or frequent (eg, every 2 to 4 hours) parenteral analgesics required [H] [ ]b) Rapid improvement expected from treatment or acute intervention (eg, surgery, anesthesia procedure) [ ]XXVI.Severe behavioral health issues judged unmanageable at a lower level of care (eg, residential) in a patient who is ANY ONE of the following(91) [ ]a) Acutely suicidal [ ]b) A danger to self (eg, self-mutilating or suicidal behavior) [ ]c) A danger to others (eg, assaultive or homicidal behavior) [ ]d) Incapacitated because of grave disability (eg, inability to provide for self at lower level of care) (92) [X]XXVII. Inpatient monitoring needed; examples include(1)(3)(87)(93)(94)(95)(96 ): [ ]a) Vital signs, neurologic signs, or vascular checks more frequently than every 4 hours [X]b) Cardiac or respiratory monitoring beyond the scope (eg, over 24 hours) of observation care [ ]c) Pulmonary artery catheter monitoring [ ]d) Suspected compartment syndrome(97) (98) [ ]e) Cerebral bleeding, hydrocephalus, or vasospasm monitoring [ ]f) Increased intracranial pressure or cerebral edema monitoring [ ]g) monitoring [ ]XXVIII. Treatment requiring inpatient care; examples include: [ ]a) IV fluid to replace significant ongoing losses (greater than 3 L/m2 per day)(53) [ ]b) High concentration oxygen (greater than 40%)(33)(99)(100) [ ]c) Frequent respiratory therapy (more frequently than every 4 hours) to maintain airflow rates greater than 60% of baseline(33)(99)(100) [ ]d) Epidural analgesia(87) [ ]e) IV anticoagulation, vasoactive, or antiarrhythmic medication(19 )(23) [ ]f) Acute thrombolytics (generally require 24 hours of observation )(101)(102) [ ]XXIX. Emergency procedures needed; examples include: [ ]a) Emergency inpatient surgery [ ]b) Temporary pacemaker placement(103) [ ]c) Chest tube placement with active evacuation (eg, suction, drainage)(104) [ ]d) Emergent cardioversion(105) [ ]e) Emergent cardiac or vascular procedures (eg, cardiac catheterization, angioplasty) (17)(18) [ ]f) Emergent dialysis access placement and institution(10)(106) [ ]g) Emergent pericardiocentesis(107) [ ]h) Emergent plasmapheresis or leukapheresis(83) [ ]i) Emergent tracheostomy The original [employer] content created by [employer] has been revised. The portions of the content which have been revised are identified through the use of italic text or in bold, and [employer] [facility] has neither reviewed nor approved the modified material. All other unmodified content is copyright [employer]. Please see references footnoted in the original [employer] edition 2016 Admission Criteria Met?: Yes TASHIA TORRES September 30, 2016 19:06
[2016-09-30 19:50] VITALS: BP 162/69
--- NOTE | 2016-09-30 19:53 | RAD ---
PROCEDURE CTA abdomen and pelvis HISTORY Epigastric pain, attempted celiac artery stent insertion yesterday TECHNIQUE CT imaging was performed of the abdomen and pelvis after administration of intravenous contrast, multiplanar reconstruction images to include MIP and 3D reconstruction images submitted. Exposure: One or more of the following individualized dose reduction techniques were utilized for this exam: 1. Automated exposure control. 2. Adjustment of the mA and/or kV according to patient size. 3. Use of iterative reconstruction technique. 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 There are patent single renal arteries bilaterally. Both kidneys enhance, no hydronephrosis. There is small 1.2 centimeter hypodense lesion of the mid left kidney, density measurements 23 Hounsfield units. Tiny hypodense lesion of the right kidney is too small to otherwise characterize accurately. Inferior mesenteric arteries pain. Abdominal aortic caliber is within normal limits, scattered plaque. Iliac arteries are patent, some scattered plaque present. There is artifact in the pelvis created by right hip arthroplasty. There is no significant free air or free fluid. There is no new focal abnormality of the liver, spleen, pancreas. There is emphysema of the visualized lung bases. There is colonic diverticulosis. There is no adrenal nodularity. There has been cholecystectomy. Normal appendix is visualized. There is grade 1 anterior spondylolisthesis at L3-4 and L5-S1, multilevel facet degenerative change of the lumbar spine. There is degenerative disc disease greatest at L3-4 and L4-5. There is compression deformity of T9 as seen previously. IMPRESSION 1. 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 2. There is colonic diverticulosis. 3. Small hypodense foci of the kidneys are otherwise difficult to accurately characterize, statistically most likely cysts. Electronically signed by: Billy Fung MD (September 30, 2016 19:51:42)
== END 2016-09-30 20:02 | disposition home or self-care (01) ==
LOC: ER 15:25
DX: R00.0 Tachycardia, unspecified (principal); R20.2 Paresthesia of skin; R11.0 Nausea; K21.9 Gastro-esophageal reflux disease without esophagitis; G89.29 Other chronic pain; Z90.49 Acquired absence of other specified parts of digestive tract; Z90.710 Acquired absence of both cervix and uterus; Z96.641 Presence of right artificial hip joint; Z88.1 Allergy status to other antibiotic agents; Z91.041 Radiographic dye allergy status; Z91.011 Allergy to milk products; Z88.5 Allergy status to narcotic agent; Z91.013 Allergy to seafood; Z88.8 Allergy status to other drugs, medicaments and biological substances
CPT/HCPCS: 36415; 74174; 80048; 80076; 83605; 83690; 85027; 93005; 96361; 96374; 96375; 99285; J1200; J2405; J2930; J7040; Q9967; S0028

== ENCOUNTER → 2016-12-26 | Outpatient (CLI) | payer MEDICARE ==
[2016-11-21 11:21] VITALS: BP 141/69
[~2016-12-26] MED LIST changes: -CALC500T27 PO; +CALC500T30 PO; +CLOP75TA PO; +DICL100G18 TP; -DICL100G7 TP; -LEVO500T38 PO; +LEVO500T59 PO; -SUCR1TAB29 PO; +SUCR1TAB35 PO
--- NOTE | 2016-12-26 11:45 | RAD ---
EXAM: Nuclear gastric emptying scan. HISTORY: Nausea/vomiting. COMPARISON: None. TECHNIQUE: Serial static images were obtained over the stomach following oral administration of 2.0 mCi of 99m-Tc sulfur colloid in an egg based meal. FINDINGS: The stomach appears normal in contour. There is clearance of activity into the small bowel. Gastric emptying half-time is 62 minutes (normal <90 minutes). Refer to the worksheets for more detail. IMPRESSION: 1. Normal gastric emptying halftime.
== END | disposition home or self-care (01) ==
LOC: NM 07:35
PROVIDERS: ATTEND Internal Medicine Gastroenterology
DX: R11.0 Nausea (principal)
CPT/HCPCS: 78264; A9541

== ENCOUNTER → 2017-02-04 | Outpatient (CLI) | payer MEDICARE ==
[2016-11-21 11:21] VITALS: BP 141/69
--- NOTE | 2017-02-04 14:43 | KCIC ---
MRI Lumbar Spine without contrast History: Right hip pain, right low back pain Technique: Multiplanar, multi sequential noncontrast MR imaging was performed of the lumbar spine. Contrast: None Comparison: None Findings: Lumbar vertebral body stature is overall adequate. There is grade 1 anterior spondylolisthesis at L3-4, negligible anterior spondylolisthesis L5-S1. There is more advanced degenerative disc disease L3-4 and to lesser degree at L4-5, mild degenerative disease at L2-3 and very minimally at L1-2. Conus terminates at T12-L1. Mild L3-4 and L4-5 endplate edema is likely reactive/degenerative in etiology. There is mild levoscoliosis of the lumbar spine. Poorly evaluated, there may be nondisplaced defect of the left L5 pars interarticularis. L1-2: This level was not included on the axial images. There is very shallow protrusion in the inferior left neural foramen without significant impingement exiting left L1 nerve root. L2-L3: There is very minimal posterior bulge. Spinal canal and neural foramina are adequate. L3-L4: There is minimal disc osteophyte complex and bulge. Spinal canal is adequate. There is likely defect of the left lamina. There is [id number] neural foramina compromise bilaterally greater on the right in part from disc osteophyte complex which contacts the undersurfaces of exiting L3 nerve roots greater on the right. L4-5: There is a shallow posterior bulge/broad protrusion without significant impingement of the descending L5 nerve roots. Spinal canal is overall adequate. There is left laminectomy defect. There is [id number] narrowing of the left neural foramen, moderate to severe narrowing of the right neural foramen. There is contact of the exiting L4 nerve roots greater on the right. L5-S1: Spinal canal is adequate. There is mild right facet hypertrophic change. Neural foramina are not significantly narrowed. Impression: 1. There is grade 1 anterior spondylolisthesis at L3-4 and to lesser degree at L5-S1. There may be left L5 spondylolysis. 2. There is advanced degenerative disc disease L3-4 and to lesser degree at L4-5. 3. There is no significant lumbar spinal stenosis. 4. There is neural foramina compromise as stated greatest on the right at L4-5, to lesser degree on the left at L4-5 and bilaterally at L3-4. Electronically signed by: Israel Fung MD (02/04/2017 2:40 PM) [facility]
== END | disposition home or self-care (01) ==
LOC: KCIC MRI 13:26
PROVIDERS: ATTEND Orthopaedic Surgery
DX: M51.36 Other intervertebral disc degeneration, lumbar region (principal); M25.551 Pain in right hip; M43.16 Spondylolisthesis, lumbar region
CPT/HCPCS: 72148

== ENCOUNTER → 2017-08-19 | Outpatient (CLI) | payer MEDICARE | END | disposition home or self-care (01) | LOC: KCIC CT 13:10 | DX: K57.32 Diverticulitis of large intestine without perforation or abscess without bleeding (principal); J43.9 Emphysema, unspecified; N28.1 Cyst of kidney, acquired | CPT/HCPCS: 74176 ==

== ENCOUNTER → 2017-11-09 | Outpatient (CLI) | payer MEDICARE ==
[2017-11-09] MEDS: BARIUM SULFATE 105% 1,900 ML SUSP PO (09:48)
== END | disposition home or self-care (01) ==
LOC: RAD 08:59
DX: K57.92 Diverticulitis of intestine, part unspecified, without perforation or abscess without bleeding (principal); Z93.2 Ileostomy status
CPT/HCPCS: 74270

== ENCOUNTER → 2017-11-10 | Outpatient (CLI) | payer MEDICARE ==
[~2017-11-10] MED LIST changes: -ACET325T9 PO; -ALPH300C PO; -ALPR0.254 PO; -ALPR0.5T6 PO; -CALC-98 PO; -CALC500T30 PO; -CETI10CA PO; -CETI10TA22 PO; -CLOP75TA PO; +CONTRAST GIVEN. MC; -DICL100G18 TP; -FEXO180T81 PO; -FLUT16SP2 NS; -FURO40TA4 PO; -HYDR12.58 PO; -IBUP-1060 PO; -LACT1CAP29 PO; -LEVO500T59 PO; -METR500T PO; -MULT-245 PO; -OMEP20CA9 PO; -OMEP40CA5 PO; -POLY17PO29 PO; -POTA20TA4 PO; -PROAIR HFA8.5 GM INH; -SUCR1TAB35 PO; +diphenhydrAMINE HCL 25 MG CAPSULE PO
[2017-11-10] MEDS: IOHEXOL 240 MG/ML 50ML VIAL. PO (09:30)
[2017-11-10] MEDS: IOHEXOL 300 MG/ML 100ML VIAL. IV (12:02)
[2017-11-10] MEDS: diphenhydrAMINE HCL 25 MG CAPSULE PO (12:04)
== END | disposition home or self-care (01) ==
LOC: CT 08:12
DX: K57.92 Diverticulitis of intestine, part unspecified, without perforation or abscess without bleeding (principal); M51.36 Other intervertebral disc degeneration, lumbar region
CPT/HCPCS: 74177; Q0163; Q9966; Q9967

== ENCOUNTER → 2017-11-30 | Outpatient (CLI) | payer MEDICARE ==
[~2017-11-30] MED LIST changes: +BARIUM SULFATE 105% 1,900 ML SUSP PO; -CONTRAST GIVEN. MC; -diphenhydrAMINE HCL 25 MG CAPSULE PO
== END | disposition home or self-care (01) ==
LOC: RAD 07:41
DX: K56.41 Fecal impaction (principal); I10 Essential (primary) hypertension; E78.5 Hyperlipidemia, unspecified; E78.00 Pure hypercholesterolemia, unspecified; Z90.49 Acquired absence of other specified parts of digestive tract
CPT/HCPCS: 74018

== ENCOUNTER → 2017-12-01 | Outpatient (CLI) | payer MEDICARE ==
[2017-12-01] MEDS: BARIUM SULFATE 105% 1,900 ML SUSP PO (11:01)
== END | disposition home or self-care (01) ==
LOC: RAD 08:57
DX: K57.30 Diverticulosis of large intestine without perforation or abscess without bleeding (principal); I10 Essential (primary) hypertension; E78.5 Hyperlipidemia, unspecified; E78.00 Pure hypercholesterolemia, unspecified; J45.909 Unspecified asthma, uncomplicated
CPT/HCPCS: 74270

== ENCOUNTER 2017-12-08 06:25 | Inpatient (IN) | payer MEDICARE ==
[2017-12-08] MEDS ORDERED: fentaNYL PF VIAL 100 MCG/2 ML VIAL IV (07:00)
[2017-12-08] MEDS ORDERED: LIDOCAINE 1% PF 2 ML VIAL. ID (07:00)
[2017-12-08] MEDS: IV RINGERS,LACTATED 1000ML 1,000 ML IV ×3 (07:32→20:46)
[2017-12-08] MEDS ORDERED: fentaNYL PF VIAL 250 MCG/5 ML VIAL (07:36)
[2017-12-08] MEDS ORDERED: ROCURONIUM 50 MG/5 ML VIAL. (07:36)
[2017-12-08] MEDS ORDERED: DEXAMETHASONE SOD PHOS 20 MG/5 ML VIAL. (07:37)
[2017-12-08] MEDS ORDERED: PROPOFOL 20 ML IV (07:37)
[2017-12-08] MEDS ORDERED: PHENYLEPHRINE in 0.9% NACL PF 1 MG/10 ML SYRINGE. IV (07:37)
[2017-12-08] MEDS ORDERED: ONDANSETRON PF 4 MG/2 ML VIAL. (07:37)
[2017-12-08] MEDS ORDERED: DESFLURANE 61 TO 120 MINUTES IH (07:37)
[2017-12-08] MEDS ORDERED: ePHEDrine PF IN SALINE 50 MG/5 ML DISP.SYRIN IV (08:08)
[2017-12-08] MEDS ORDERED: NEOSTIGMINE METHYLSULFATE 5 MG/5 ML SYRINGE. (08:33)
[2017-12-08] MEDS ORDERED: GLYCOPYRROLATE 1 MG/5 ML VIAL. (08:33)
[2017-12-08] MEDS ORDERED: NALOXONE 0.4 MG/ML VIAL. IV (09:45)
[2017-12-08] MEDS ORDERED: ONDANSETRON PF 4 MG/2 ML VIAL. IV (09:45)
[2017-12-08] MEDS ORDERED: 0.9 % SODIUM CHLORIDE 10 ML DISP.SYRIN. IV (09:45)
[2017-12-08] MEDS: fentaNYL PF VIAL 100 MCG/2 ML VIAL IV ×2 (10:19→10:24)
[2017-12-08] MEDS: MORPHINE SULFATE/PF 30 ML IV (10:22)
[2017-12-08] MEDS: IV NORMAL SALINE 1000ML BAG 1,000 ML IV (10:30)
[2017-12-08] MEDS ORDERED: MORPHINE SULFATE/PF 30 ML IV (11:30)
[2017-12-08] MEDS: ONDANSETRON PF 4 MG/2 ML VIAL. IV ×2 (11:41→18:13)
[2017-12-08] MEDS ORDERED: PHENOL ORAL SPRAY 177ML BOTTLE. PO (17:15)
[2017-12-09] MEDS: IV RINGERS,LACTATED 1000ML 1,000 ML IV ×2 (06:36→16:40)
[2017-12-09] MEDS: ENOXAPARIN 40 MG/0.4 ML SYRINGE. SQ (08:01)
[2017-12-09] MEDS: IV NORMAL SALINE 1000ML BAG 1,000 ML IV (08:01)
[2017-12-09] MEDS: oxyCODONE IR 5 MG TABLET PO ×2 (13:07→19:10)
[2017-12-09] MEDS: BENZOCAINE/MENTHOL LOZENGE. PO ×2 (16:38→20:21)
[2017-12-09] MEDS ORDERED: NON FORMULARY ITEM (Albuterol Sulfate (Proair Hfa Inhaler) 1 PUFF) INH (19:45)
[2017-12-09] MEDS ORDERED: cloNIDine HCL 0.1 MG TABLET PO (19:45)
[2017-12-09] MEDS ORDERED: ALPRAZolam 0.5 MG TABLET PO (19:45)
[2017-12-09] MEDS ORDERED: ALBUTEROL SULFATE 2.5 MG/3 ML NEBU. NEB (20:00)
[2017-12-09] MEDS: diphenhydrAMINE HCL 25 MG CAPSULE PO (20:13)
[2017-12-09] MEDS: ALPRAZolam 0.5 MG TABLET PO (20:13)
[2017-12-09] MEDS: GABAPENTIN 300 MG CAPSULE. PO (20:14)
[2017-12-09] MEDS: AZELASTINE NASAL SPRAY 30ML BOTTLE. NS (20:15)
[2017-12-09] MEDS: ATORVASTATIN CALCIUM 40 MG TABLET. PO (20:18)
[2017-12-09] MEDS: CETIRIZINE HCL 10 MG TABLET. PO (20:18)
[2017-12-09] MEDS: ROSUVASTATIN 10 MG PO (21:19)
[2017-12-10] MEDS: oxyCODONE IR 5 MG TABLET PO ×4 (01:24→20:40)
[2017-12-10] MEDS: IV RINGERS,LACTATED 1000ML 1,000 ML IV ×3 (02:18→20:41)
[2017-12-10] MEDS: diphenhydrAMINE HCL 25 MG CAPSULE PO ×2 (02:18→20:40)
[2017-12-10] MEDS: ACETAMINOPHEN 325 MG TABLET. PO ×2 (04:05→10:43)
[2017-12-10 06:24] LABS: BILIRUBIN,URINE NEGATIVE (NEG); CLARITY,URINE CLEAR; COLOR,URINE YELLOW; GLUCOSE,URINE NEGATIVE (NEG); NITRITE,URINE NEGATIVE (NEG); PH,URINE 6.5; PROTEIN,URINE NEGATIVE (NEG-TRACE); UROBILINOGEN,URINE 0.2 mg/dL (0.2 mg/dL)
[2017-12-10 06:39] LABS: BACTERIA,URINE 0 /HPF (0-FEW); RBC,URINE 0 /HPF (0-2); SQUAMOUS EPITHELIAL CELL,UR FEW /LPF; WBC,URINE 0 /HPF (0-4)
[2017-12-10] MEDS: AZELASTINE NASAL SPRAY 30ML BOTTLE. NS ×2 (08:07→18:17)
[2017-12-10] MEDS: FLUTICASONE 50MCG/NASAL SPRAY 16GM BOTTLE. NS ×2 (08:07→18:00)
[2017-12-10] MEDS: DOCUSATE SODIUM 100 MG CAPSULE. PO (08:08)
[2017-12-10] MEDS: POLYETHYLENE GLYCOL 3350 17 GM PACKET. PO (08:08)
[2017-12-10] MEDS: PANTOPRAZOLE 40 MG TABLET.DR. PO (08:09)
[2017-12-10] MEDS: ASPIRIN ENTERIC COATED 81 MG TABLET.DR. PO (08:09)
[2017-12-10] MEDS: hydroCHLOROthiazide 25 MG TABLET PO (08:09)
[2017-12-10] MEDS: ENOXAPARIN 40 MG/0.4 ML SYRINGE. SQ (08:11)
[2017-12-10] MEDS: IV NORMAL SALINE 1000ML BAG 1,000 ML IV (10:30)
[2017-12-10] MEDS: MULTIVITAMIN with MINERAL TABLET. PO (10:32)
[2017-12-10] MEDS: CETIRIZINE HCL 10 MG TABLET. PO (10:33)
[2017-12-10] MEDS: GABAPENTIN 300 MG CAPSULE. PO (20:40)
[2017-12-10] MEDS: ALPRAZolam 0.5 MG TABLET PO (20:40)
[2017-12-11] MEDS: FLUTICASONE 50MCG/NASAL SPRAY 16GM BOTTLE. NS ×2 (05:51→18:51)
[2017-12-11] MEDS: oxyCODONE IR 5 MG TABLET PO ×4 (05:52→18:49)
[2017-12-11] MEDS: PANTOPRAZOLE 40 MG TABLET.DR. PO (05:52)
[2017-12-11] MEDS: ACETAMINOPHEN 325 MG TABLET. PO ×3 (06:07→18:48)
[2017-12-11] MEDS: ROSUVASTATIN PO (09:00)
[2017-12-11 09:01] LABS: ADD MAN DIFF? NO
[2017-12-11 09:06] LABS: BASO # 0.1 x10^3/uL (0.0-0.2); BASO % 1 % (0-3); EOS # 0.1 x10^3/uL (0.0-0.7); EOS % 1 % (0-3); HEMATOCRIT 34.8 % (36.0-47.0); HEMOGLOBIN 11.9 g/dL (12.0-15.5); LYMPH # 1.2 x10^3/uL (1.0-4.8); LYMPH % 17 % (24-48); MEAN CORPUSCULAR HEMOGLOBIN 34 pg (25-35); MEAN CORPUSCULAR HGB CONC 34 g/dL (31-37); MEAN CORPUSCULAR VOLUME 99 fL (79-100); MONO # 0.6 x10^3/uL (0.0-1.1); MONO % 8 % (0-9); NEUT % 73 % (31-73); PLATELET COUNT 256 x10^3/uL (140-400); RED BLOOD COUNT 3.53 x10^6/uL (3.50-5.40); RED CELL DISTRIBUTION WIDTH 13.4 % (11.5-14.5); WHITE BLOOD COUNT 6.9 x10^3/uL (4.0-11.0)
[2017-12-11 09:17] LABS: MAGNESIUM 1.6 mg/dL (1.8-2.4)
[2017-12-11 09:22] LABS: ALBUMIN 3.3 g/dL (3.4-5.0); ALK PHOS 78 U/L (46-116); ALT (SGPT) 80 U/L (14-59); ANION GAP 7 (6-14); AST (SGOT) 53 U/L (15-37); BLOOD UREA NITROGEN 5 mg/dL (7-20); BUN/CREATININE RATIO 7 (6-20); CALCIUM 8.4 mg/dL (8.5-10.1); CARBON DIOXIDE 31 mmol/L (21-32); CHLORIDE 100 mmol/L (98-107); CREATININE 0.7 mg/dL (0.6-1.0); GFR 97.9; GLUCOSE 108 mg/dL (70-99); POTASSIUM 3.2 mmol/L (3.5-5.1); SODIUM 138 mmol/L (136-145); TOTAL BILIRUBIN 0.8 mg/dL (0.2-1.0); TOTAL PROTEIN 6.6 g/dL (6.4-8.2)
[2017-12-11] MEDS: AZELASTINE NASAL SPRAY 30ML BOTTLE. NS ×2 (09:31→20:30)
[2017-12-11] MEDS: hydroCHLOROthiazide 25 MG TABLET PO (09:32)
[2017-12-11] MEDS: MULTIVITAMIN with MINERAL TABLET. PO (09:32)
[2017-12-11] MEDS: ASPIRIN ENTERIC COATED 81 MG TABLET.DR. PO (09:32)
[2017-12-11] MEDS: DOCUSATE SODIUM 100 MG CAPSULE. PO (09:32)
[2017-12-11] MEDS: ENOXAPARIN 40 MG/0.4 ML SYRINGE. SQ (09:35)
[2017-12-11] MEDS: POLYETHYLENE GLYCOL 3350 17 GM PACKET. PO (09:35)
[2017-12-11] MEDS: IV NORMAL SALINE 1000ML BAG 1,000 ML IV (09:36)
[2017-12-11 10:24] LABS: THYROID STIM HORMONE (TSH) 1.087 uIU/mL (0.358-3.74)
[2017-12-11] MEDS: MAGNESIUM SULFATE 2GM 50 ML IV (10:57)
[2017-12-11] MEDS: POTASSIUM CHLORIDE 20 MEQ TABLET.ER. PO (11:02)
[2017-12-11] MEDS: CETIRIZINE HCL 10 MG TABLET. PO (20:30)
[2017-12-11] MEDS: GABAPENTIN 300 MG CAPSULE. PO (20:30)
[2017-12-11] MEDS: ALPRAZolam 0.5 MG TABLET PO (20:30)
[2017-12-12] MEDS: oxyCODONE IR 5 MG TABLET PO ×2 (06:09→12:49)
[2017-12-12] MEDS: IV NORMAL SALINE 1000ML BAG 1,000 ML IV (07:23)
[2017-12-12] MEDS: DOCUSATE SODIUM 100 MG CAPSULE. PO (08:16)
[2017-12-12] MEDS: PANTOPRAZOLE 40 MG TABLET.DR. PO (08:16)
[2017-12-12] MEDS: ALPRAZolam 0.5 MG TABLET PO (08:16)
[2017-12-12] MEDS: ASPIRIN ENTERIC COATED 81 MG TABLET.DR. PO (08:17)
[2017-12-12] MEDS: hydroCHLOROthiazide 25 MG TABLET PO (08:17)
[2017-12-12] MEDS: MULTIVITAMIN with MINERAL TABLET. PO (08:17)
[2017-12-12] MEDS: POLYETHYLENE GLYCOL 3350 17 GM PACKET. PO (08:18)
[2017-12-12] MEDS: FLUTICASONE 50MCG/NASAL SPRAY 16GM BOTTLE. NS (08:19)
[2017-12-12] MEDS: AZELASTINE NASAL SPRAY 30ML BOTTLE. NS (08:19)
[2017-12-12] MEDS: ENOXAPARIN 40 MG/0.4 ML SYRINGE. SQ (08:19)
[2017-12-12] MEDS: POTASSIUM & SODIUM PHOSPHATES PACKET. PO (12:49)
[2017-12-12] MEDS: MAGNESIUM CHLORIDE ER 64 MG TABLET.ER PO (12:49)
[2017-12-14] MEDS ORDERED: ROSUVASTATIN PO (16:00)
== END 2017-12-12 13:55 | disposition home health service (06) | DRG 330 ==
LOC: OPSVCIP 06:25 → 4 NORTH 10:38
PROC: 0DSB0ZZ Reposition Ileum, Open Approach (ICD-10-PCS; principal; 2017-12-08 07:54)
DX: K57.00 Diverticulitis of small intestine with perforation and abscess without bleeding (principal); E78.5 Hyperlipidemia, unspecified; G50.0 Trigeminal neuralgia; I10 Essential (primary) hypertension; I25.10 Atherosclerotic heart disease of native coronary artery without angina pectoris; K66.0 Peritoneal adhesions (postprocedural) (postinfection); L90.9 Atrophic disorder of skin, unspecified; Z43.2 Encounter for attention to ileostomy; F41.9 Anxiety disorder, unspecified; J30.2 Other seasonal allergic rhinitis; M54.5 Low back pain; Z82.49 Family history of ischemic heart disease and other diseases of the circulatory system; Z82.62 Family history of osteoporosis; Z86.010 Personal history of colon polyps; Z86.73 Personal history of transient ischemic attack (TIA), and cerebral infarction without residual deficits; Z87.11 Personal history of peptic ulcer disease; Z90.710 Acquired absence of both cervix and uterus; Z95.5 Presence of coronary angioplasty implant and graft
CPT/HCPCS: 36415; 80053; 81001; 83735; 84443; 85025; 87086; 93005; 93306; 93970; 94760; A7015; J0694; J1100; J1650; J2270; J2370; J2405; J2704; J2710; J3010; J3475; J3490; J7030; J7120; Q0163

== ENCOUNTER → 2018-01-05 | Outpatient (CLI) | payer MEDICARE | END | disposition home or self-care (01) | LOC: KCIC MRI 09:01 | DX: G50.0 Trigeminal neuralgia (principal); M50.31 Other cervical disc degeneration, high cervical region; I10 Essential (primary) hypertension; E78.5 Hyperlipidemia, unspecified | CPT/HCPCS: 70551 ==

== ENCOUNTER 2018-01-30 16:21 | Emergency (ER) | payer MEDICARE ==
[~2018-01-30] VITALS: Ht 154.9 cm; Wt 54.4 kg
[~2018-01-30 16:21] MED LIST changes: +ACET325T9 PO; +ALPH300C PO; +ALPR0.254 PO; +ALPR0.5T PO; +ALPR0.5T6 PO; +AMOX1TAB11 PO; +ASPI-482 PO; +AZEL137S3 NS; -BARIUM SULFATE 105% 1,900 ML SUSP PO; +BIFI4CAP PO; +CALC-98 PO; +CALC500T30 PO; +CETI10CA PO; +CETI10TA22 PO; +CLON0.1T PO; +CLOP75TA PO; +CRESTOR10 MG PO; +DICL100G18 TP; +FEXO180T81 PO; +FLUT16SP2 NS; +FURO40TA4 PO; +GABA-586 PO; +HYDR12.58 PO; +IBUP-1060 PO; +LACT1CAP29 PO; +LEVO500T59 PO; +LEVO750T31 PO; +METR500T PO; +MULT-245 PO; +OMEP20CA9 PO; +OMEP40CA5 PO; +ONDA4TAB12 PO; +OXYC5CAP PO; +OXYC5TAB95 PO; +POLY17PO29 PO; +POTA20TA4 PO; +PROAIR HFA8.5 GM INH; +SUCR1TAB35 PO
[2018-01-30 16:55] LABS: BILIRUBIN,URINE NEGATIVE (NEG); CLARITY,URINE CLEAR; COLOR,URINE YELLOW; NITRITE,URINE NEGATIVE (NEG); PROTEIN,URINE NEGATIVE (NEG-TRACE); UROBILINOGEN,URINE 0.2 mg/dL (0.2 mg/dL)
[2018-01-30 17:00] LABS: BACTERIA,URINE 0 /HPF (0-FEW); RBC,URINE 0 /HPF (0-2); SQUAMOUS EPITHELIAL CELL,UR FEW /LPF; WBC,URINE OCC /HPF (0-4)
[2018-01-30] MEDS ORDERED: IV NORMAL SALINE 1000ML BAG 1,000 ML IV ONE (17:00)
[2018-01-30] MEDS ORDERED: PANTOPRAZOLE IV PUSH 40 MG VIAL. IVP ONE (17:00)
[2018-01-30] MEDS ORDERED: ONDANSETRON PF 4 MG/2 ML VIAL. IV ONE (17:00)
--- NOTE | 2018-01-30 17:02 | PHYS DOC ---
Past Medical History Past Medical History: Anxiety, Constipation, Diverticulitis, Diverticulosis, GERD, Other Additional Past Medical Histor: chronic back pain, delayed gastric emptying, celiac artery stenosis Past Surgical History: Cholecystectomy, Hip Replacement, Hysterectomy Additional Past Surgical Histo: back surgery, hernia, R HIP, mesenteric surgery Alcohol Use: None Drug Use: None Adult General Chief Complaint Chief Complaint: ABDOMINAL PAIN HPI HPI Patient is a 77 year old female with history of constipation, diverticulitis, colon resection, anxiety, acid reflex, who presents today complaining of a 2 out of 10 mid epigastric to right upper quadrant abdominal pain described as feeling of stomach acid, she states the pain is intermittent and has gotten better. Denies any nausea vomiting. Denies any fever, denies any urgency frequency or dysuria. She states she is going today dinner theater tomorrow and would like to be checked out to make sure everything is okay. She also states she took MiraLAX because she has chronic constipation. Last bowel movement was prior to coming to the ED. Review of Systems Review of Systems Constitutional: Denies fever or chills [] Eyes: Denies change in visual acuity, redness, or eye pain [] HENT: Denies nasal congestion or sore throat [] Respiratory: Denies cough or shortness of breath [] Cardiovascular: No additional information not addressed in HPI [] GI: Reports abdominal pain, denies nausea, vomiting, bloody stools or diarrhea [ ] : Denies dysuria or hematuria [] Musculoskeletal: Denies back pain or joint pain [] Integument: Denies rash or skin lesions [] Neurologic: Denies headache, focal weakness or sensory changes [] All other systems were reviewed and found to be within normal limits, except as documented in this note. Current Medications Current Medications Current Medications Medications (Trade) Dose Ordered Sig/Farnaz Start Time Stop Time Status Last Admin Dose Admin Magnesium Citrate (Citroma) 296 ml 1X ONCE 01/30/18 19:30 01/30/18 19:43 DC 01/30/18 19:30 296 ML Ondansetron HCl (Zofran) 4 mg 1X ONCE 01/30/18 17:00 01/30/18 17:04 DC 01/30/18 18:00 4 MG Pantoprazole Sodium (PROTONIX VIAL for IV PUSH) 40 mg 1X ONCE 01/30/18 17:00 01/30/18 17:04 DC 01/30/18 18:01 40 MG Sodium Chloride 1,000 ml @ 1,000 mls/hr 1X ONCE 01/30/18 17:00 01/30/18 17:59 DC 01/30/18 18:01 1,000 MLS/HR Allergies Allergies Allergies Coded Allergies Type Severity Reaction Last Updated Verified lisinopril Allergy Severe SYMPTOMS OF A MINI STROKE 12/07/17 Yes alprazolam Allergy Intermediate MULTIPLE C/O 01/30/18 Yes amlodipine Allergy Intermediate Nausea, SWELLING AND HEADACHES 12/07/17 Yes ciprofloxacin Allergy Intermediate ITCHING,SWELLING,REDNESS 12/07/17 Yes clonidine Allergy Intermediate Rash 12/07/17 Yes cyclobenzaprine Allergy Intermediate Palpitations 12/07/17 Yes iodine Allergy Intermediate Itching 12/07/17 Yes iodine Allergy Intermediate Rash, ITCHING 12/07/17 Yes lactose Allergy Intermediate Swelling, BLOATING 12/07/17 Yes losartan Allergy Intermediate Swelling, MIGRAINE, SINUS INFECTION, 12/07/17 Yes mold Allergy Intermediate Shortness of Air 12/08/17 Yes olanzapine Allergy Intermediate Rash 12/07/17 Yes oxycodone Allergy Intermediate 12/07/17 Yes perfume Allergy Intermediate Shortness of Air 12/08/17 Yes shellfish derived Allergy Intermediate Swelling 12/07/17 Yes simvastatin Allergy Intermediate MUSCLE PROBLEM 12/07/17 Yes tramadol Allergy Intermediate Swelling, ITCHING 12/07/17 Yes triamterene Allergy Intermediate Unknown 12/07/17 Yes valsartan Allergy Intermediate Swelling, MIGRAINE, SINUS INFECTION, 12/07/17 Yes cat dander Adverse Reaction Intermediate 12/07/17 Yes dicyclomine Adverse Reaction Intermediate 12/07/17 Yes duloxetine Adverse Reaction Intermediate Itching 12/07/17 Yes gabapentin Adverse Reaction Intermediate 12/07/17 Yes gold sodium thiomalate Adverse Reaction Intermediate Itching 12/07/17 Yes hydralazine Adverse Reaction Intermediate Palpitations 12/07/17 Yes hydrocodone Adverse Reaction Intermediate NAUSEA, LOW BLOOD PRESSURE 12/07/17 Yes meloxicam Adverse Reaction Intermediate Nausea and Vomiting 12/07/17 Yes metoclopramide Adverse Reaction Intermediate 12/07/17 Yes metoprolol Adverse Reaction Intermediate Swelling 12/07/17 Yes montelukast Adverse Reaction Intermediate COULD NOT SLEEP 12/07/17 Yes nystatin Adverse Reaction Intermediate 12/07/17 Yes pregabalin Adverse Reaction Intermediate constipation 12/07/17 Yes promethazine Adverse Reaction Intermediate Nausea 12/07/17 Yes raspberry Adverse Reaction Intermediate 12/07/17 Yes sertraline Adverse Reaction Intermediate TREMORS, HYPOTENSION 12/07/17 Yes Uncoded Allergies Type Severity Reaction Last Updated Verified MAGIC RINSE Allergy Mild NAUSEA,ABD PAIN 01/30/18 Physical Exam Physical Exam Constitutional: Well developed, well nourished, no acute distress, non-toxic appearance. [] HENT: Normocephalic, atraumatic, bilateral external ears normal, oropharynx moist, no oral exudates, nose normal. [] Eyes: PERRLA, EOMI, conjunctiva normal, no discharge. [] Neck: Normal range of motion, no tenderness, supple, no stridor. [] Cardiovascular:Heart rate regular rhythm, no murmur [] Lungs & Thorax: Bilateral breath sounds clear to auscultation [] Abdomen: Multiple old healed surgical incisions noted on the abdomen. Bowel sounds normal, soft, no tenderness, no masses, no pulsatile masses. [] Skin: Warm, dry, no erythema, no rash. [] Back: No tenderness, no CVA tenderness. [] Extremities: No tenderness, no cyanosis, no clubbing, ROM intact, no edema. [] Neurologic: Alert and oriented X 3, normal motor function, normal sensory function, no focal deficits noted. [] Psychologic: Affect normal, judgement normal, mood normal. [] Current Patient Data Vital Signs Vital Signs Date Time Temp Pulse Resp B/P (MAP) Pulse Ox O2 Delivery O2 Flow Rate FiO2 01/30/18 19:45 74 160/67 (98) 99 Room Air 01/30/18 16:40 98.7 20 98.7 Lab Values Laboratory Tests Test 01/30/18 16:40 01/30/18 18:00 Urine Collection Type Unknown Urine Color Yellow Urine Clarity Clear Urine pH 8.0 Urine Specific [place] 1.015 Urine Protein Negative mg/dL (NEG-TRACE) Urine Glucose (UA) Negative mg/dL (NEG) Urine Ketones (Stick) Negative mg/dL (NEG) Urine Blood Negative (NEG) Urine Nitrite Negative (NEG) Urine Bilirubin Negative (NEG) Urine Urobilinogen Dipstick 0.2 mg/dL (0.2 mg/dL) Urine Leukocyte Esterase Negative (NEG) Urine RBC 0 /HPF (0-2) Urine WBC Occ /HPF (0-4) Urine Squamous Epithelial Cells Few /LPF Urine Bacteria 0 /HPF (0-FEW) Urine Mucus Slight /LPF Urine Opiates Screen Neg (NEG) Urine Methadone Screen Neg (NEG) Urine Barbiturates Neg (NEG) Urine Phencyclidine Screen Neg (NEG) Urine Amphetamine/Methamphetamine Neg (NEG) Urine Benzodiazepines Screen Pos (NEG) Urine Cocaine Screen Neg (NEG) Urine Cannabinoids Screen Neg (NEG) Urine Ethyl Alcohol Neg (NEG) White Blood Count 4.7 x10^3/uL (4.0-11.0) Red Blood Count 3.88 x10^6/uL (3.50-5.40) Hemoglobin 13.3 g/dL (12.0-15.5) Hematocrit 38.0 % (36.0-47.0) Mean Corpuscular Volume 98 fL (79-100) Mean Corpuscular Hemoglobin 34 pg (25-35) Mean Corpuscular Hemoglobin Concent 35 g/dL (31-37) Red Cell Distribution Width 13.6 % (11.5-14.5) Platelet Count 220 x10^3/uL (140-400) Neutrophils (%) (Auto) 65 % (31-73) Lymphocytes (%) (Auto) 24 % (24-48) Monocytes (%) (Auto) 9 % (0-9) Eosinophils (%) (Auto) 1 % (0-3) Basophils (%) (Auto) 1 % (0-3) Neutrophils # (Auto) 3.1 x10^3uL (1.8-7.7) Lymphocytes # (Auto) 1.1 x10^3/uL (1.0-4.8) Monocytes # (Auto) 0.4 x10^3/uL (0.0-1.1) Eosinophils # (Auto) 0.1 x10^3/uL (0.0-0.7) Basophils # (Auto) 0.0 x10^3/uL (0.0-0.2) Sodium Level 132 mmol/L (136-145) L Potassium Level 3.9 mmol/L (3.5-5.1) Chloride Level 96 mmol/L (98-107) L Carbon Dioxide Level 29 mmol/L (21-32) Anion Gap 7 (6-14) Blood Urea Nitrogen 9 mg/dL (7-20) Creatinine 0.5 mg/dL (0.6-1.0) L Estimated GFR (Cockcroft-Gault) 144.4 BUN/Creatinine Ratio 18 (6-20) Glucose Level 93 mg/dL (70-99) Calcium Level 9.6 mg/dL (8.5-10.1) Magnesium Level 2.0 mg/dL (1.8-2.4) Total Bilirubin 0.5 mg/dL (0.2-1.0) Aspartate Amino Transferase (AST) 27 U/L (15-37) Alanine Aminotransferase (ALT) 25 U/L (14-59) Alkaline Phosphatase 74 U/L (46-116) Creatine Kinase 48 U/L (26-192) Creatine Kinase MB (Mass) < 0.5 ng/mL (0.0-3.6) Creatine Kinase MB Relative Index % (0-4) Troponin I Quantitative < 0.017 ng/mL (0.000-0.055) SX-Pid-M-Type Natriuretic Peptide 36 pg/mL (0-449) Total Protein 6.9 g/dL (6.4-8.2) Albumin 4.1 g/dL (3.4-5.0) Albumin/Globulin Ratio 1.5 (1.0-1.7) Lipase 58 U/L (73-393) L Laboratory Tests 01/30/18 18:00 Laboratory Tests 01/30/18 18:00 EKG EKG [] Radiology/Procedures Radiology/Procedures []PROCEDURE: CT ABDOMEN PELVIS WO CONTRAST CT Abdomen and Pelvis without contrast History: Mid abdominal pain since this a.m., recent colostomy reversal Technique: Noncontrast CT imaging was performed of the abdomen and pelvis. Multiplanar images are reviewed. Exposure: One or more of the following individualized dose reduction techniques were utilized for this examination: 1. Automated exposure control 2. Adjustment of the mA and/or kV according to patient size 3. Use of iterative reconstruction technique. Comparison: November 10, 2017 Findings: There is no new significant abnormality limited visualized lung bases.Accurate evaluation of abdominal visceral organs is limited without intravenous contrast. There is no obvious abnormality of the spleen, liver, or pancreas. There is no adrenal nodularity. No urolithiasis or hydronephrosis is identified. There is again 1.5 cm hypodense lesion of the mid left kidney more likely a cyst. Accurate evaluation of bowel is limited without oral contrast. There is some residual contrast near anastomotic site in the right pelvic region. There has been interval takedown of previously seen right lower quadrant colostomy. Accurate evaluation for bowel wall thickening is limited without oral contrast. There is residual stool most notable in the redundant sigmoid colon. Urinary bladder is somewhat distended. There is some artifact in the pelvis created by right hip arthroplasty. There is no significant free air, free fluid, bowel dilatation. There is again stent in the proximal celiac artery. There is advanced degenerative disc disease at L3-4 and to lesser degree at L4-5. There is grade 1 anterior spondylolisthesis L3-4. There is multilevel facet degenerative change. Impression: 1. There has been interval takedown of previously seen right ostomy, residual stool in segments of the colon most notable redundant sigmoid colon. Evaluation for bowel wall thickening is limited without oral contrast. 2. There is distention of the urinary bladder. 3. There is left renal cyst. Electronically signed by: Demetrius Bhatia MD (01/30/2018 7:10 PM) [facility] DICTATED and SIGNED BY: DEMETRIUS BHATIA MD DATE: 01/30/181902 Course & Med Decision Making Course & Med Decision Making Pertinent Labs and Imaging studies reviewed. (See chart for details) This is a 77-year-old female patient presenting to the ED today complaining of epigastric abdominal pain radiating to the right upper quadrant since 3 AM this morning. Patient's labs are negative for any acute findings, urine analysis is negative for infection. CT of the abdomen and pelvic was negative for any acute findings , noted for constipation. Patient was given magnesium citrate in the ED. Instructed to continue using MiraLAX every day. She has history of chronic constipation. Also instructed to take 1-7 citrate tomorrow morning if she has not had a normal bowel movement. She has a GI doctor. Recommended she follows up in the course of next week. Patient's blood pressure was 179/74 in the ED, patient states she has history of hypertension but her doctor only wants her to take clonidine when necessary. She will recheck her blood pressure as soon as she gets home and if she meets the criteria provided by her PCP she will take the clonidine. She has no cardiac or neurological symptoms Staff Physician Addendum: I was working in the ER during the course of this patient's visit. I was available for consultation as needed, but I was not directly involved in the care of this patient. Jewel Disclaimer Dragon Disclaimer This electronic medical record was generated, in whole or in part, using a voice recognition dictation system. Departure Departure Impression: Primary Impression: Abdominal pain Additional Impressions: Constipation Hypertension Disposition: 01 HOME, SELF-CARE Condition: STABLE Referrals: SHAWN ALMONTE MD (PCP) follow up with Dr. Martin and Dr. Church next week Patient Instructions: Abdominal Pain, Constipation, Adult, Hypertension Additional Instructions: You were evaluated in the emergency room for abdominal pain and noted to be constipated. Continue using MiraLAX every day. Also take magnesium citrate for occasional constipation. Follow-up with Dr. Church next week. Your blood pressure was also elevated in the emergency room. Please take your clonidine at home. Problem Qualifiers Primary Impression: Abdominal pain Abdominal location: right upper quadrant Qualified Codes: R10.11 - Right upper quadrant pain Additional Impressions: Constipation Constipation type: unspecified constipation type Qualified Codes: K59.00 - Constipation, unspecified Hypertension Hypertension type: unspecified Qualified Codes: I10 - Essential (primary) hypertension CHRIS CASIANO APRN Jan 30, 2018 17:02 MARGARET CHANDLER MD Jan 30, 2018 23:29
[2018-01-30 17:44] LABS: AMPHETAMINE/METHAMPHETAMINE NEG (NEG); BARBITURATES NEG (NEG); BENZODIAZEPINES POS (NEG); CANNABINOIDS NEG (NEG); COCAINE NEG (NEG); METHADONE NEG (NEG); OPIATES NEG (NEG); PHENCYCLIDINE NEG (NEG)
[2018-01-30 18:14] LABS: BASO % 1 % (0-3); EOS # 0.1 x10^3/uL (0.0-0.7); EOS % 1 % (0-3); HEMOGLOBIN 13.3 g/dL (12.0-15.5); LYMPH # 1.1 x10^3/uL (1.0-4.8); LYMPH % 24 % (24-48); MEAN CORPUSCULAR HEMOGLOBIN 34 pg (25-35); MEAN CORPUSCULAR HGB CONC 35 g/dL (31-37); MEAN CORPUSCULAR VOLUME 98 fL (79-100); MONO # 0.4 x10^3/uL (0.0-1.1); MONO % 9 % (0-9); NEUT # 3.1 x10^3uL (1.8-7.7); NEUT % 65 % (31-73); PLATELET COUNT 220 x10^3/uL (140-400); RED BLOOD COUNT 3.88 x10^6/uL (3.50-5.40); RED CELL DISTRIBUTION WIDTH 13.6 % (11.5-14.5); WHITE BLOOD COUNT 4.7 x10^3/uL (4.0-11.0)
[2018-01-30 18:30] LABS: CALCIUM 9.6 mg/dL (8.5-10.1); CREATININE 0.5 mg/dL (0.6-1.0); GFR 144.4; POTASSIUM 3.9 mmol/L (3.5-5.1)
[2018-01-30 18:46] LABS: ALBUMIN 4.1 g/dL (3.4-5.0); ALBUMIN/GLOBULIN RATIO 1.5 (1.0-1.7); TOTAL BILIRUBIN 0.5 mg/dL (0.2-1.0); TOTAL PROTEIN 6.9 g/dL (6.4-8.2)
[2018-01-30 18:58] LABS: CREATINE KINASE 48 U/L (26-192)
--- NOTE | 2018-01-30 19:13 | RAD ---
CT Abdomen and Pelvis without contrast History: Mid abdominal pain since this a.m., recent colostomy reversal Technique: Noncontrast CT imaging was performed of the abdomen and pelvis. Multiplanar images are reviewed. Exposure: One or more of the following individualized dose reduction techniques were utilized for this examination: 1. Automated exposure control 2. Adjustment of the mA and/or kV according to patient size 3. Use of iterative reconstruction technique. Comparison: November 10, 2017 Findings: There is no new significant abnormality limited visualized lung bases.Accurate evaluation of abdominal visceral organs is limited without intravenous contrast. There is no obvious abnormality of the spleen, liver, or pancreas. There is no adrenal nodularity. No urolithiasis or hydronephrosis is identified. There is again 1.5 cm hypodense lesion of the mid left kidney more likely a cyst. Accurate evaluation of bowel is limited without oral contrast. There is some residual contrast near anastomotic site in the right pelvic region. There has been interval takedown of previously seen right lower quadrant colostomy. Accurate evaluation for bowel wall thickening is limited without oral contrast. There is residual stool most notable in the redundant sigmoid colon. Urinary bladder is somewhat distended. There is some artifact in the pelvis created by right hip arthroplasty. There is no significant free air, free fluid, bowel dilatation. There is again stent in the proximal celiac artery. There is advanced degenerative disc disease at L3-4 and to lesser degree at L4-5. There is grade 1 anterior spondylolisthesis L3-4. There is multilevel facet degenerative change. Impression: 1. There has been interval takedown of previously seen right ostomy, residual stool in segments of the colon most notable redundant sigmoid colon. Evaluation for bowel wall thickening is limited without oral contrast. 2. There is distention of the urinary bladder. 3. There is left renal cyst. Electronically signed by: Israel Fung MD (01/30/2018 7:10 PM) [facility]
[2018-01-30] MEDS ORDERED: MAGNESIUM CITRATE 296 ML SOLUTION. PO ONE (19:30)
[2018-01-30 19:45] VITALS: BP 160/67
--- NOTE | 2018-01-31 07:21 | EKG ---
[facility] [address] [place] [address] Test Date: 2018-01-30 Test Time: 17:16:54 Pat Name: SAUL LUGO Department: Room: Gender: F Etl [employer] Architect: : [id number] Requested By: CHRIS CASIANO Order Number: [id number] Reading MD: Rosales Finley MD Measurements Intervals [place] Rate: 73 P: 64 UT: 182 QRS: -33 QRSD: 80 T: 34 QT: 378 QTc: 420 Interpretive Statements SINUS RHYTHM SEPTAL INFARCT Electronically Signed On 02-02-2018 12:04:14 CDT by Rosales Finley MD
== END 2018-01-30 19:54 | disposition home or self-care (01) ==
LOC: ER 16:21
DX: R10.13 Epigastric pain (principal); R10.11 Right upper quadrant pain; K59.00 Constipation, unspecified; I10 Essential (primary) hypertension; K21.9 Gastro-esophageal reflux disease without esophagitis; Z90.49 Acquired absence of other specified parts of digestive tract; Z90.710 Acquired absence of both cervix and uterus
CPT/HCPCS: 36415; 74176; 80053; 80307; 81001; 82553; 83690; 83735; 83880; 84484; 85025; 93005; 96374; 96375; 99285; C9113; J2405; J7030; G0479

== ENCOUNTER → 2018-04-08 | Outpatient (CLI) | payer MEDICARE ==
[~2018-04-08] MED LIST changes: +OXYC5TAB4 PO; -OXYC5TAB95 PO
--- NOTE | 2018-04-08 09:47 | KCIC ---
AP abdomen radiograph 04/08/2018 CLINICAL HISTORY: Abdominal pain and constipation. 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 The patient was not prepped for the barium enema. This radiograph demonstrates a moderate amount stool throughout the colon. The patient was rescheduled for the barium enema and given instructions for an appropriate prep prior to this examination. This radiograph demonstrates surgical changes consistent with a right FAINA. The abdominal bowel gas pattern is nonobstructive. Calcifications are seen within the pelvis consistent with phleboliths. Degenerative changes are seen involving lumbar spine and left hip. No radiopaque calculus is seen. IMPRESSION: Nonobstructive bowel gas pattern. Electronically signed by: Jareth Blue MD (04/08/2018 9:44 AM) [id number]
== END | disposition home or self-care (01) ==
LOC: KCIC 08:39
PROVIDERS: ATTEND Internal Medicine
DX: K59.09 Other constipation (principal); M16.12 Unilateral primary osteoarthritis, left hip; M47.896 Other spondylosis, lumbar region
CPT/HCPCS: 74270

== ENCOUNTER → 2018-04-09 | Outpatient (CLI) | payer MEDICARE ==
[~2018-04-09] MED LIST changes: -OXYC5TAB4 PO; +OXYC5TAB95 PO
--- NOTE | 2018-04-09 12:55 | KCIC ---
Double contrast barium enema study 04/09/2018 CLINICAL HISTORY: Post colon resection and re-anastomosis. Constipation. TECHNIQUE: A double contrast barium enema study was performed under fluoroscopic and radiographic control. The total fluoroscopic time is 44 seconds. 9 digital spot radiographs were obtained. FINDINGS: Comparison is made to the patient's CT scan of the abdomen/pelvis dated 01/30/2018. An AP digital radiograph of the abdomen/pelvis was obtained as a associate director of sales radiograph. This demonstrated surgical clips within the right upper quadrant abdomen consistent with a cholecystectomy. The patient is post right FAINA. The abdominal bowel gas pattern is nonobstructive. Calcifications are seen within the pelvis consistent with phleboliths. Degenerative changes are seen involving the lumbar spine along with the left hip. The entire colon is distended with barium and air. The patient appears to be post left hemicolectomy. An anastomosis with the remaining sigmoid colon and transverse colon is seen within the left lower quadrant of the abdomen/pelvis. The anastomosis is patent. No extravasation of contrast is noted. Scattered diverticula are seen involving the colon. The cecum is in its normal location within the right lower quadrant of the abdomen. No mucosal abnormality of the remaining colon is seen. No stricture is noted. IMPRESSION: 1. Post left hemicolectomy. 2. Colonic diverticulosis. 3. Otherwise negative study. Electronically signed by: Jareth Blue MD (04/09/2018 12:52 PM) [id number]
== END | disposition home or self-care (01) ==
LOC: KCIC 08:32
PROVIDERS: ATTEND Internal Medicine
DX: K57.30 Diverticulosis of large intestine without perforation or abscess without bleeding (principal); I87.8 Other specified disorders of veins; M51.36 Other intervertebral disc degeneration, lumbar region; Z90.49 Acquired absence of other specified parts of digestive tract
CPT/HCPCS: 74270

== ENCOUNTER → 2019-06-06 | Outpatient (CLI) | payer MEDICARE ==
[2018-12-23 12:42] VITALS: BP 114/54
[~2019-06-06] MED LIST changes: +ALBU2.5V8 INH; -CETI10TA22 PO; +CETI10TA24 PO; -GABA-586 PO; +GABA300C18 PO; +OMEP20CA16 PO; -OMEP20CA9 PO; +OMEP40CA45 PO; -OMEP40CA5 PO; +OXYC5TAB4 PO; -OXYC5TAB95 PO; -PROAIR HFA8.5 GM INH
--- NOTE | 2019-06-06 11:10 | KCIC ---
LUMBAR SPINE WO CONTRAST History: Chronic low back pain. Progressive compared to prior. Previous surgery. Technique: Multiplanar, multi sequential MR imaging was performed of the lumbar spine. Comparison: February 04, 2017 Findings: Grade 1 anterolisthesis L3 on L4 and L5 on S1, unchanged. Normal vertebral body height. No fracture. No pathologic marrow placing process. Degenerative endplate edema L4-L5. Conus terminates at the normal location. No evidence of nerve root clumping. Bilateral renal cysts partially imaged. L1-L2: Bilateral small foraminal disc protrusions, left greater than right. Mild left neuroforaminal narrowing. No right neuroforaminal narrowing. No canal narrowing. Mild facet arthropathy. L2-L3: Bulge eccentric to the left. Mild facet arthropathy. No canal narrowing. No neuroforaminal narrowing. L3-L4: Anterolisthesis. Disc uncovering. Right subarticular/foraminal disc protrusion/extrusion extending slightly inferiorly. Mild right subarticular recess narrowing with abutment of the descending right L4 nerve root. No canal narrowing. Partial left laminectomy. Advanced facet arthropathy. Moderate right and mild left neural foraminal narrowing. No canal narrowing. L4-L5: Broad-based posterior disc bulge. Prior left laminectomy. No canal narrowing. Mild right subarticular recess narrowing. Moderate facet arthropathy. Moderate to advanced right neuroforaminal narrowing. Moderate left neuroforaminal narrowing. L5-S1: Small posterior disc bulge. Moderate facet arthropathy. No canal narrowing. Mild bilateral neural foraminal narrowing. Impression: 1. Multilevel lumbar spinal stenosis with subarticular recess narrowing most prominent L3-L4 and L4-L5, mildly progressed compared to prior. 2. Grade 1 anterolisthesis L4 on L5 and L5 on S1, unchanged. 3. Multilevel neural foraminal narrowing most prominent moderate to severe right L4-L5, progressed compared to prior. Electronically signed by: Zach Fitch DO (06/06/2019 11:07 AM) [email or web address]
== END | disposition home or self-care (01) ==
LOC: KCIC MRI 08:22
PROVIDERS: ATTEND Internal Medicine
DX: M51.27 Other intervertebral disc displacement, lumbosacral region (principal); M47.817 Spondylosis without myelopathy or radiculopathy, lumbosacral region; M43.17 Spondylolisthesis, lumbosacral region; M48.07 Spinal stenosis, lumbosacral region
CPT/HCPCS: 72148

== ENCOUNTER → 2019-07-12 | Outpatient (CLI) | payer MEDICARE ==
[2018-12-23 12:42] VITALS: BP 114/54
--- NOTE | 2019-07-12 16:59 | KCIC ---
UPPER EXT JOINT WO CONT LEFT, UPPER EXT JOINT WO CONT RIGHT dated 07/12/2019 3:30 PM Indication: Bilateral shoulder pain limited range of motion .. Comparison: No comparison is available. Technique: Routine multiplanar multisequence MR imaging of bilateral shoulder. Findings left shoulder: There is intermediate T2 signal throughout the supraspinatus and infraspinatus portions of the rotator cuff. There is thickening of the coracoclavicular ligament with bursal surface partial tearing and thinning of the supraspinatus critical zone of breath about 50-60% thickness. There is also articular and bursal surface partial tearing of the supraspinatus footplate. Small partial tear of the anterior supraspinatus footplate extends about 60-70% thickness. No definite full-thickness tear or cuff retraction. Mild increased signal within the long head biceps tendon proximally. Extra articular portion courses within the bicipital groove. Glenoid labrum is grossly intact. No apparent labral tear or para labral cyst. No full-thickness glenoid cartilage defect. No joint effusion or loose body. Mild hypertrophic change of the AC joint. Mild undersurface spurring of the acromium. Trace subacromial/subdeltoid bursal fluid collection. The acromium is type II morphology. Suprascapular and spinoglenoid notches are clear. No significant muscle edema or muscle atrophy. IMPRESSION LEFT SHOULDER: 1. Moderate rotator cuff tendinopathy with multifocal mild to moderate partial-thickness tearing as described above. No full-thickness tear or cuff retraction. 2. Mild proximal biceps tendinosis. 3. Mild AC joint arthropathy with undersurface spurring. Tiny subacromial/subdeltoid bursal effusion. 4. No apparent labral tear. Findings right shoulder: There is intermediate T2 signal throughout the supraspinatus and infraspinatus portions of the rotator cuff. Mild articular and interstitial partial tearing of the anterior supraspinatus footplate. No full-thickness tear or cuff retraction. Subscapularis is intact. Moderate hypertrophic change of the AC joint with mild undersurface spurring. Trace amount of subacromial/subdeltoid bursal fluid. Acromion type II morphology. Intermediate signal within the proximal long head biceps tendon. Extra articular portion courses within the bicipital groove. Blunted morphology of the posterior labrum with some linear signal inferiorly that could represent prominent pericardial labral vascularity or small tear. Anterior labrum is grossly intact. No glenoid cartilage defect. No joint effusion or loose body. Suprascapular and spinoglenoid notches are clear. No significant muscle edema or muscle atrophy. IMPRESSION RIGHT SHOULDER: 1. Rotator cuff tendinopathy with mild articular and interstitial partial tearing of the anterior supraspinatus footplate. No full-thickness tear or cuff retraction. 2. Moderate AC joint arthropathy with mild undersurface spurring. 3. Blunted morphology and signal change at the posterior labrum suggesting degenerative SLAP tear. 4. Mild biceps tendinosis. Electronically signed by: Vimal Lock MD (07/12/2019 4:56 PM) [email or web address]
== END | disposition home or self-care (01) ==
LOC: KCIC MRI 15:01
PROVIDERS: ATTEND Orthopaedic Surgery
DX: M75.101 Unspecified rotator cuff tear or rupture of right shoulder, not specified as traumatic (principal); M75.102 Unspecified rotator cuff tear or rupture of left shoulder, not specified as traumatic; M19.011 Primary osteoarthritis, right shoulder; M19.012 Primary osteoarthritis, left shoulder; M75.81 Other shoulder lesions, right shoulder; M75.82 Other shoulder lesions, left shoulder; M75.22 Bicipital tendinitis, left shoulder; M75.21 Bicipital tendinitis, right shoulder; M25.412 Effusion, left shoulder
CPT/HCPCS: 73221

== ENCOUNTER → 2020-02-01 | Outpatient (CLI) | payer MEDICARE ==
[2018-12-23 12:42] VITALS: BP 114/54
[~2020-02-01] MED LIST changes: -CETI10TA24 PO; +CETI10TA74 PO; -DICL100G18 TP; +DICL100G54 TP
--- NOTE | 2020-02-01 10:35 | KCIC ---
L-spine 2 views INDICATION: Spondylolisthesis. Back pain. Bilateral leg pain. COMPARISON: MR lumbar spine 06/06/2019 FINDINGS: Standing 2 views of the lumbar spine in flexion and extension were obtained and show similar mild anterolisthesis at L3-L4 and L4-L5, lowest most fully formed vertebral body referred to as L5 on this exam. No abnormal motion is identified. Osteopenia. No acute fracture. No aggressive osseous lesions. Multilevel facet arthropathy. Soft tissues show cholecystectomy clips and stents in the upper abdomen.. IMPRESSION: No significant abnormal motion identified on flexion and extension views of the lumbar spine with stable anterolisthesis at L3-L4 and L4-L5. Electronically signed by: Alejandrina Carey MD (02/01/2020 10:32 AM) [id number]
== END | disposition home or self-care (01) ==
LOC: KCIC 08:38
PROVIDERS: ATTEND Neurological Surgery
DX: M43.16 Spondylolisthesis, lumbar region (principal); M47.816 Spondylosis without myelopathy or radiculopathy, lumbar region; M85.88 Other specified disorders of bone density and structure, other site
CPT/HCPCS: 72100

== ENCOUNTER → 2020-04-05 | Outpatient (CLI) | payer MEDICARE ==
[2018-12-23 12:42] VITALS: BP 114/54
--- NOTE | 2020-04-05 16:01 | KCIC ---
EXAM: US extremity nonvascular-right medial ankle DATE: 04/05/2020 3:00 PM COMPARISON: None INDICATION: Right Medial Distal Ankle Painful Mass TECHNIQUE: Longitudinal and transverse imaging with intermittent Doppler sampling completed with attention to right medial ankle at the site of palpable abnormality FINDINGS/ IMPRESSION: Normal subcutaneous tissue and muscle architecture is identified at the site of palpable abnormality. A discrete encapsulated soft tissue mass is not identified. If there is persistent clinical concern or interval enlargement, MRI evaluation can be performed. Electronically signed by: Marcus Suarez MD (04/05/2020 3:58 PM) [id number]
== END ==
LOC: KCIC US 15:05
PROVIDERS: ATTEND Internal Medicine
DX: R22.41 Localized swelling, mass and lump, right lower limb (principal)
CPT/HCPCS: 76881